=== PATIENT | female | born 1940 | race Caucasian/White ===

== ENCOUNTER 2016-08-11 09:46 | Outpatient (CLI) | payer MEDICARE, OTHER | END 2016-08-11 09:47 | disposition home or self-care (01) | DX: R11.10 Vomiting, unspecified (principal) | CPT/HCPCS: 78265; A9541 ==

== ENCOUNTER 2016-08-12 08:00 | Outpatient (CLI) | payer MEDICARE, OTHER | END 2016-08-12 23:59 | disposition home or self-care (01) | DX: R11.10 Vomiting, unspecified (principal) ==

== ENCOUNTER 2016-08-16 08:00 | Outpatient (CLI) | payer MEDICARE, OTHER | END 2016-08-16 08:01 | disposition home or self-care (01) | DX: R11.10 Vomiting, unspecified (principal) ==

== ENCOUNTER 2016-08-18 14:00 | Outpatient (CLI) | payer MEDICARE, OTHER | END 2016-08-18 14:01 | disposition home or self-care (01) | DX: R11.10 Vomiting, unspecified (principal) ==

== ENCOUNTER 2016-08-19 08:00 | Outpatient (CLI) | payer MEDICARE, OTHER | END 2016-08-19 08:01 | disposition home or self-care (01) | DX: R11.10 Vomiting, unspecified (principal) ==

== ENCOUNTER 2016-08-26 08:00 | Outpatient (CLI) | payer MEDICARE, OTHER | END 2016-08-26 23:59 | DX: R11.10 Vomiting, unspecified (principal) ==

== ENCOUNTER 2017-02-03 07:57 | Outpatient (CLI) | payer MEDICARE, OTHER ==
--- NOTE | 2017-02-03 16:39 | Ultrasound Report ---
RIGHT UPPER QUADRANT ULTRASOUND: 02/03/2017 CLINICAL INDICATION: Epigastric pain, dyspepsia. TECHNIQUE: Real-time scanning was performed with admitting representative static images obtained. FINDINGS: The liver measures 12.1 cm. Hepatic echogenicity is mildly increased. No focal parenchym al abnormality or intrahepatic biliary dilatation is present. The common bile duct measures 6 mm. T he gallbladder is normal. The right kidney measures 9.0 cm and demonstrates no hydronephrosis. No f ree fluid is present. IMPRESSION: MILDLY ECHOGENIC LIVER, SUSPICIOUS FOR FATTY INFILTRATION. NO EVIDENCE OF CHOLELITHIASI S OR BILIARY OBSTRUCTION. JOB #: [id number] EXT JOB #:[id number]
== END 2017-02-03 07:58 | disposition home or self-care (01) ==
LOC: DI 07:57
PROVIDERS: ATTEND Internal Medicine Gastroenterology
DX: R10.13 Epigastric pain (principal)
CPT/HCPCS: 76705

== ENCOUNTER 2017-09-27 08:29 | Outpatient (CLI) | payer MEDICARE, OTHER ==
[2017-09-27 11:09] LABS: EOSINOPHILS # (AUTO) 0.2 10^3/uL (0.0-0.7); EOSINOPHILS % (AUTO) 3.8 %; HGB - HEMOGLOBIN 12.9 g/dL (12.0-16.0); LYMPHOCYTES # (AUTO) 1.2 10^3/uL (1.5-3.5); LYMPHOCYTES % (AUTO) 29.3 %; MEAN CORPUSCULAR HEMOGLOBIN 30.4 pg (27.0-31.0); MEAN CORPUSCULAR HGB CONC 33.6 g/dL (32.0-36.0); MEAN CORPUSCULAR VOLUME 90.4 fL (81.0-99.0); MEAN PLATELET VOLUME 8.4 fL (7.9-10.8); MONOCYTES # (AUTO) 0.6 10^3/uL (0.0-1.0); MONOCYTES % (AUTO) 13.4 %; NEUTROPHILS # (AUTO) 2.2 10^3/uL (1.5-6.6); NEUTROPHILS % (AUTO) 52.5 %; PLT - PLATELET COUNT 230 10^3/uL (130-450); RED BLOOD COUNT 4.23 10^6/uL (4.20-5.40); RED CELL DISTRIBUTION WIDTH 14.3 % (12.0-15.0); WHITE BLOOD COUNT 4.1 x10^3/uL (4.8-10.8)
[2017-09-27 11:34] LABS: ALBUMIN 3.7 g/dL (3.2-5.5); ALBUMIN/GLOBULIN RATIO 1.5 (1.0-2.2); ALKALINE PHOSPHATASE 33 IU/L (42-121); ALT ALANINE AMINOTRANSFERASE 15 IU/L (10-60); AST ASPARTATE AMINOTRANSFERASE 20 IU/L (10-42); BILIRUBIN,TOTAL 1.1 mg/dL (0.2-1.0); BUN - BLOOD UREA NITROGEN 20 mg/dL (6-20); CALCIUM 9.1 mg/dL (8.5-10.3); CARBON DIOXIDE - CO2 26 mmol/L (21-32); CHLORIDE 107 mmol/L (101-111); CHOL/HDL RATIO 1.8 (<4.4); CHOLESTEROL 151 mg/dL; CREATININE 0.8 mg/dL (0.4-1.0); GFR - MDRD 69 (>89); GLUCOSE 93 mg/dL (70-100); HDL CHOLESTEROL 82 mg/dL; SODIUM 139 mmol/L (135-145); TOTAL PROTEIN 6.2 g/dL (6.7-8.2)
[2017-09-27 11:54] LABS: LDL CHOLESTEROL,DIRECT 48 mg/dL; LDLD/HDL RATIO 0.6 (<4.4)
== END 2017-09-27 08:30 | disposition home or self-care (01) ==
LOC: LAB.F 08:29
PROVIDERS: ATTEND Nurse Practitioner Family
DX: C54.1 Malignant neoplasm of endometrium (principal); Z13.220 Encounter for screening for lipoid disorders
CPT/HCPCS: 36415; 80053; 80061; 83721; 85025

== ENCOUNTER 2017-12-14 13:18 | Outpatient (CLI) | payer MEDICARE, OTHER ==
--- NOTE | 2017-12-16 10:51 | DEXA Report ---
DEXA SCAN: 12/14/2017 HISTORY: Postmenopausal. History of osteoporosis. Previous chemotherapy for cancer and hormone replacement therapy. TECHNIQUE: Dual energy x-ray absorptiometry (DXA) was performed on a [employer] system. Regions measured are the AP spine, femoral neck, and, if needed, forearm. COMPARISON: None. In accordance with the International Society for Clinical Densitometry (ISCD) guidelines, data from previous exams may be reanalyzed using current recommendations and techniques. This is done to allow a more accurate basis for comparison with the current study. FINDINGS: The data for the lumbar spine is as follows: REGION BMD (g/cm/cm) T-SCORE Z-SCORE L1 0.845 -2.4 -0.1 L2 0.903 -2.5 -0.2 L3 1.030 -1.4 0.9 L4 1.013 -1.6 0.7 TOTAL 0.958 -1.8 0.5 NOTE: All evaluable vertebrae are used for classification. The data for the hip is as follows: REGION BMD (g/cm/cm) T-SCORE Z-SCORE Neck 0.739 -2.1 0.3 TOTAL 0.790 -1.7 0.5 NOTE: The femoral neck or total proximal femur, whichever is lowest, is used for classification. IMPRESSION: THE WHO CLASSIFICATION BASED ON THE INTERNATIONAL REFERENCE STANDARD IS OSTEOPENIA (REFERENCE LEFT FEMORAL NECK). THE FRACTURE RISK IS INCREASED. RECOMMENDATION: Patients with diagnosis of osteoporosis or osteopenia should have regular bone mineral density assessment. For those eligible for Medicare, routine testing is allowed once every 2 years. Testing frequency can be increased for patients who have rapidly progressing disease or for those who are receiving medical therapy to restore bone mass. COMMENT: World Health Organization (WHO) definitions for osteoporosis and osteopenia: NORMAL BMD: T-score at 1.0 or higher, fracture risk is low. OSTEOPENIA BMD: T-score between 1.0 and -2.5, fracture risk is increased. OSTEOPOROSIS BMD: T-score at 2.5 or lower, fracture risk high. National Osteoporosis Foundation recommends: 1. Obtain adequate dietary calcium (at least 1200 mg per day) and vitamin D (400 -800 international units per day). 2. Participate, as appropriate, in regular weightbearing and muscle- strengthening exercise. 3. Avoid tobacco use and reduce alcohol and caffeine intake. 4. For more detailed information see the website at www.NOF.org. MTDD
== END 2017-12-14 13:19 | disposition home or self-care (01) ==
LOC: DI 13:18
PROVIDERS: ATTEND Internal Medicine
DX: Z13.820 Encounter for screening for osteoporosis (principal); M85.88 Other specified disorders of bone density and structure, other site; Z78.0 Asymptomatic menopausal state
CPT/HCPCS: 77080

== ENCOUNTER 2017-12-14 13:19 | Outpatient (CLI) | payer MEDICARE, OTHER ==
--- NOTE | 2017-12-16 14:55 | Mammography Report ---
SCREENING MAMMOGRAM: 12/14/2017 COMPARISON: 06/28/2011, 05/18/2007 and 04/26/2007. TECHNIQUE: Bilateral digital CC and MLO projections. FINDINGS: There are scattered fibroglandular densities. There is no dominant mass, architectural distortion, skin thickening, suspicious microcalcification, or significant interval change. IMPRESSION: NEGATIVE. BIRADS CATEGORY - 1. RECOMMENDATION: Suggest return to routine screening in 12 months. STANDARD QUALIFYING STATEMENTS: 1. This examination was reviewed with the aid of Computer-Aided Detection (CAD). 2. A negative or benign imaging report should not delay biopsy if clinically suspicious findings are present. Consider surgical consultation if warranted. More than 5% of cancers are not identified by imaging. 3. Dense breasts may obscure an underlying neoplasm. TD: 12/16/2017 14:04
== END 2017-12-14 13:20 | disposition home or self-care (01) ==
LOC: DI 13:19
PROVIDERS: ATTEND Internal Medicine
DX: Z12.31 Encounter for screening mammogram for malignant neoplasm of breast (principal); Z78.0 Asymptomatic menopausal state
CPT/HCPCS: 77067

== ENCOUNTER 2018-07-20 12:45 | Outpatient (CLI) | payer MEDICARE, OTHER | END 2018-07-20 12:46 | disposition home or self-care (01) | LOC: DI 12:45 | PROVIDERS: ATTEND Internal Medicine | DX: Z82.49 Family history of ischemic heart disease and other diseases of the circulatory system (principal); I34.0 Nonrheumatic mitral (valve) insufficiency | CPT/HCPCS: 93306 ==

== ENCOUNTER 2018-09-21 07:07 | Outpatient (CLI) | payer MEDICARE, OTHER ==
[2018-09-21 12:58] LABS: EOSINOPHILS # (AUTO) 0.2 10^3/uL (0.0-0.7); EOSINOPHILS % (AUTO) 3.9 %; HGB - HEMOGLOBIN 12.7 g/dL (12.0-16.0); LYMPHOCYTES # (AUTO) 1.4 10^3/uL (1.5-3.5); MEAN CORPUSCULAR HEMOGLOBIN 29.8 pg (27.0-31.0); MEAN CORPUSCULAR HGB CONC 33.1 g/dL (32.0-36.0); MEAN CORPUSCULAR VOLUME 89.8 fL (81.0-99.0); MEAN PLATELET VOLUME 8.5 fL (7.9-10.8); MONOCYTES # (AUTO) 0.5 10^3/uL (0.0-1.0); MONOCYTES % (AUTO) 12.9 %; NEUTROPHILS % (AUTO) 48.2 %; PLT - PLATELET COUNT 252 10^3/uL (130-450); RED BLOOD COUNT 4.25 10^6/uL (4.20-5.40); RED CELL DISTRIBUTION WIDTH 14.4 % (12.0-15.0); WHITE BLOOD COUNT 4.2 x10^3/uL (4.8-10.8)
[2018-09-21 13:18] LABS: ALBUMIN 3.9 g/dL (3.2-5.5); ALBUMIN/GLOBULIN RATIO 1.5 (1.0-2.2); ALKALINE PHOSPHATASE 36 IU/L (42-121); ALT ALANINE AMINOTRANSFERASE 22 IU/L (10-60); AST ASPARTATE AMINOTRANSFERASE 25 IU/L (10-42); BUN - BLOOD UREA NITROGEN 25 mg/dL (6-20); CALCIUM 8.8 mg/dL (8.5-10.3); CARBON DIOXIDE - CO2 25 mmol/L (21-32); CHLORIDE 103 mmol/L (101-111); CHOL/HDL RATIO 1.5 (<4.4); CHOLESTEROL 155 mg/dL; CREATININE 0.8 mg/dL (0.4-1.0); GFR - MDRD 69 (>89); GLUCOSE 96 mg/dL (70-100); HDL CHOLESTEROL 102 mg/dL; SODIUM 134 mmol/L (135-145); TOTAL PROTEIN 6.5 g/dL (6.7-8.2)
[2018-09-21 13:45] LABS: LDL CHOLESTEROL,DIRECT 52 mg/dL; LDLD/HDL RATIO 0.5 (<4.4)
[2018-09-21 14:13] LABS: HB2 TOTAL 13.6 g/dL; HEMOGLOBIN A1C 0.51 g/dL; HEMOGLOBIN A1C % 5.6 % (4.6-6.2)
== END 2018-09-21 07:08 | disposition home or self-care (01) ==
LOC: LAB.F 07:07
PROVIDERS: ATTEND Registered Nurse
DX: Z00.00 Encounter for general adult medical examination without abnormal findings (principal)
CPT/HCPCS: 36415; 80053; 80061; 83036; 83721; 84443; 85025

== ENCOUNTER 2020-09-10 14:06 | Outpatient (CLI) | payer MEDICARE, OTHER ==
--- NOTE | 2020-09-10 15:03 | DEXA Report ---
PROCEDURE: Dexa Spine and/or Hip INDICATIONS: POST MENOPAUSAL TECHNIQUE: Dual energy x-ray absorptiometry (DXA) was performed on a [employer] System. Regions measur ed are the AP Spine, femoral neck, and if needed forearm. COMPARISON: 12/14/2017 FINDINGS: Lumbar Spine: Bone Mineral Density 0.933 g/cm/cm,T score -2.1, osteopenia Left Femoral Neck: Bone Mineral Density 0.753 g/cm/cm, T score -2.0, osteopenia (T score greater or equal to -1.0: NORMAL) (T score from -1.1 to -2.4: OSTEOPENIA) (T score less than or equal to -2.5 to: OSTEOPOROSIS) Impression: OSTEOPENIA. Patient is at increased risk for fracture Patients with diagnosis of osteoporosis or osteopenia should have regular bone mineral density assess ment. For those eligible for Medicare, routine testing is allowed once every 2 years. Testing frequ ency can be increased for patients who have rapidly progressing disease or for those who are receivin g medical therapy to restore bone mass. Reviewed by: Karhtikeyan Sanford MD on 09/10/2020 3:02 PM PST Approved by: Karthikeyan Sanford MD on 09/10/2020 3:02 PM PST Station ID: [id number]
== END 2020-09-10 14:07 | disposition home or self-care (01) ==
LOC: DI 14:06
PROVIDERS: ATTEND Registered Nurse
DX: M85.89 Other specified disorders of bone density and structure, multiple sites (principal); Z78.0 Asymptomatic menopausal state

== ENCOUNTER 2020-10-24 13:42 | Outpatient (CLI) | payer MEDICARE, OTHER ==
[2020-10-24 21:31] LABS: ALBUMIN 4.1 g/dL (3.2-5.5); CALCIUM 9.6 mg/dL (8.5-10.3); PHOSPHORUS 3.5 mg/dL (2.5-4.6); POTASSIUM 3.6 mmol/L (3.5-5.0)
== END 2020-10-24 13:43 | disposition home or self-care (01) ==
LOC: LAB.S 13:42
PROVIDERS: ATTEND Nurse Practitioner
DX: C34.31 Malignant neoplasm of lower lobe, right bronchus or lung (principal)
CPT/HCPCS: 36415; 80069

== ENCOUNTER 2020-12-11 09:39 | Outpatient (CLI) | payer MEDICARE, OTHER ==
[2020-12-11 15:15] LABS: BASOPHILS # (AUTO) 0.1 10^3/uL (0.0-0.1); EOSINOPHILS # (AUTO) 0.1 10^3/uL (0.0-0.7); EOSINOPHILS % (AUTO) 1.5 %; HCT - HEMATOCRIT 37.3 % (37.0-47.0); LYMPHOCYTES # (AUTO) 1.4 10^3/uL (1.5-3.5); LYMPHOCYTES % (AUTO) 20.9 %; MEAN CORPUSCULAR HEMOGLOBIN 29.4 pg (27.0-31.0); MEAN CORPUSCULAR HGB CONC 32.2 g/dL (32.0-36.0); MEAN CORPUSCULAR VOLUME 91.4 fL (81.0-99.0); MEAN PLATELET VOLUME 10.4 fL (7.9-10.8); MONOCYTES # (AUTO) 0.8 10^3/uL (0.0-1.0); MONOCYTES % (AUTO) 11.9 %; NEUTROPHILS # (AUTO) 4.4 10^3/uL (1.5-6.6); NEUTROPHILS % (AUTO) 64.4 %; PLT - PLATELET COUNT 293 10^3/uL (130-450); RED BLOOD COUNT 4.08 10^6/uL (4.20-5.40); RED CELL DISTRIBUTION WIDTH 14.6 % (12.0-15.0); WHITE BLOOD COUNT 6.8 x10^3/uL (4.8-10.8)
[2020-12-11 15:21] LABS: ALBUMIN 3.8 g/dL (3.2-5.5); ALBUMIN/GLOBULIN RATIO 1.2 (1.0-2.2); BILIRUBIN,TOTAL 0.8 mg/dL (0.2-1.0); CALCIUM 9.5 mg/dL (8.5-10.3); CREATININE 0.9 mg/dL (0.4-1.0); POTASSIUM 4.1 mmol/L (3.5-5.0); TOTAL PROTEIN 7.1 g/dL (6.7-8.2)
== END 2020-12-11 09:40 | disposition home or self-care (01) ==
LOC: LAB.S 09:39
PROVIDERS: ATTEND Internal Medicine
DX: C54.1 Malignant neoplasm of endometrium (principal)
CPT/HCPCS: 36415; 80053; 85025

== ENCOUNTER 2020-12-19 08:14 | Outpatient (CLI) | payer MEDICARE, OTHER ==
[2020-12-19 14:46] LABS: BASOPHILS % (AUTO) 1.3 %; EOSINOPHILS # (AUTO) 0.2 10^3/uL (0.0-0.7); HCT - HEMATOCRIT 38.8 % (37.0-47.0); HGB - HEMOGLOBIN 12.2 g/dL (12.0-16.0); LYMPHOCYTES # (AUTO) 0.9 10^3/uL (1.5-3.5); LYMPHOCYTES % (AUTO) 27.8 %; MEAN CORPUSCULAR HGB CONC 31.4 g/dL (32.0-36.0); MEAN CORPUSCULAR VOLUME 92.4 fL (81.0-99.0); MEAN PLATELET VOLUME 10.4 fL (7.9-10.8); MONOCYTES # (AUTO) 0.3 10^3/uL (0.0-1.0); MONOCYTES % (AUTO) 9.5 %; NEUTROPHILS # (AUTO) 1.8 10^3/uL (1.5-6.6); NEUTROPHILS % (AUTO) 56.1 %; PLT - PLATELET COUNT 283 10^3/uL (130-450); RED CELL DISTRIBUTION WIDTH 14.4 % (12.0-15.0); WHITE BLOOD COUNT 3.2 x10^3/uL (4.8-10.8)
== END 2020-12-19 08:15 | disposition home or self-care (01) ==
LOC: LAB.S 08:14
PROVIDERS: ATTEND Internal Medicine
DX: C54.1 Malignant neoplasm of endometrium (principal)
CPT/HCPCS: 36415; 85025

== ENCOUNTER 2020-12-26 09:18 | Outpatient (CLI) | payer MEDICARE, OTHER ==
[2020-12-26 14:49] LABS: BASOPHILS % (AUTO) 0.8 %; EOSINOPHILS % (AUTO) 3.4 %; HCT - HEMATOCRIT 36.3 % (37.0-47.0); HGB - HEMOGLOBIN 11.4 g/dL (12.0-16.0); MEAN CORPUSCULAR HEMOGLOBIN 28.7 pg (27.0-31.0); MEAN CORPUSCULAR HGB CONC 31.4 g/dL (32.0-36.0); MEAN CORPUSCULAR VOLUME 91.4 fL (81.0-99.0); MEAN PLATELET VOLUME 10.6 fL (7.9-10.8); MONOCYTES % (AUTO) 6.4 %; PLT - PLATELET COUNT 226 10^3/uL (130-450); RED BLOOD COUNT 3.97 10^6/uL (4.20-5.40); RED CELL DISTRIBUTION WIDTH 13.8 % (12.0-15.0); WHITE BLOOD COUNT 2.6 x10^3/uL (4.8-10.8)
[2020-12-26 14:59] LABS: ABNORMAL LYMPHS % (MANUAL) 0 %; BAND NEUTROPHILS % (MANUAL) 0 %
[2020-12-26 15:22] LABS: BASOPHILS % (MANUAL) 1 %; EOSINOPHILS # (MANUAL) 0.1 10^3/uL (0-0.7); LYMPHOCYTES % (MANUAL) 37 %; MONOCYTES # (MANUAL) 0.1 10^3/uL (0.0-1.0); NEUTROPHILS # (MANUAL) 1.4 10^3/uL (1.5-6.6)
[2020-12-26 15:23] LABS: DIFFERENTIAL COMMENT MANUAL DIFFERENTIAL; PLATELET ESTIMATE, MANUAL NORMAL (130-450,000) (NORMAL); PLATELET MORPHOLOGY NORMAL APPEARANCE (NORMAL); RBC MORPHOLOGY (MULTIPLE) NORMAL APPEARANCE (NORMAL); WBC MORPHOLOGY (MULTIPLE) NORMAL APPEARANCE (NORMAL)
== END 2020-12-26 09:19 | disposition home or self-care (01) ==
LOC: LAB.S 09:18
PROVIDERS: ATTEND Internal Medicine
DX: C54.1 Malignant neoplasm of endometrium (principal)
CPT/HCPCS: 36415; 85025

== ENCOUNTER 2021-01-02 08:47 | Outpatient (CLI) | payer MEDICARE, OTHER ==
[2021-01-02 14:57] LABS: BASOPHILS % (AUTO) 0.8 %; EOSINOPHILS % (AUTO) 3.8 %; HGB - HEMOGLOBIN 11.1 g/dL (12.0-16.0); LYMPHOCYTES % (AUTO) 40.8 %; MEAN CORPUSCULAR HEMOGLOBIN 29.7 pg (27.0-31.0); MEAN CORPUSCULAR HGB CONC 32.6 g/dL (32.0-36.0); MEAN CORPUSCULAR VOLUME 90.9 fL (81.0-99.0); MEAN PLATELET VOLUME 10.4 fL (7.9-10.8); MONOCYTES % (AUTO) 4.2 %; NEUTROPHILS % (AUTO) 50.4 %; PLT - PLATELET COUNT 114 10^3/uL (130-450); RED BLOOD COUNT 3.74 10^6/uL (4.20-5.40); RED CELL DISTRIBUTION WIDTH 14.3 % (12.0-15.0); WHITE BLOOD COUNT 2.6 x10^3/uL (4.8-10.8)
[2021-01-02 15:04] LABS: ABNORMAL LYMPHS % (MANUAL) 0 %
[2021-01-02 15:08] LABS: ALBUMIN 3.8 g/dL (3.2-5.5); ALBUMIN/GLOBULIN RATIO 1.5 (1.0-2.2); BILIRUBIN,TOTAL 1.2 mg/dL (0.2-1.0); CREATININE 0.8 mg/dL (0.4-1.0); TOTAL PROTEIN 6.4 g/dL (6.7-8.2)
[2021-01-02 16:19] LABS: BAND NEUTROPHILS % (MANUAL) 1 %; BASOPHILS # (MANUAL) 0.1 10^3/uL (0-0.1); BASOPHILS % (MANUAL) 3 %; EOSINOPHILS # (MANUAL) 0.2 10^3/uL (0-0.7); LYMPHOCYTES # (MANUAL) 1.2 10^3/uL (1.5-3.5); LYMPHOCYTES % (MANUAL) 47 %; MONOCYTES # (MANUAL) 0.1 10^3/uL (0.0-1.0); NEUTROPHILS # (MANUAL) 1.1 10^3/uL (1.5-6.6)
[2021-01-02 16:20] LABS: DIFFERENTIAL COMMENT MANUAL DIFFERENTIAL; PLATELET ESTIMATE, MANUAL DECREASED (<130,000) (NORMAL); PLATELET MORPHOLOGY NORMAL APPEARANCE (NORMAL); RBC MORPHOLOGY (MULTIPLE) NORMAL APPEARANCE (NORMAL); WBC MORPHOLOGY (MULTIPLE) NORMAL APPEARANCE (NORMAL)
== END 2021-01-02 08:48 | disposition home or self-care (01) ==
LOC: LAB.S 08:47
PROVIDERS: ATTEND Internal Medicine
DX: C54.1 Malignant neoplasm of endometrium (principal)
CPT/HCPCS: 36415; 80053; 85025

== ENCOUNTER 2021-01-06 09:00 | Inpatient (IN) | payer MEDICARE, OTHER ==
[2021-01-06] MEDS ORDERED: ACETAMINOPHEN 325 MG TABLET PO STA (09:29)
[2021-01-06 10:02] LABS: BASOPHILS % (AUTO) 0.8 %; EOSINOPHILS % (AUTO) 1.6 %; HCT - HEMATOCRIT 32.5 % (37.0-47.0); HGB - HEMOGLOBIN 10.6 g/dL (12.0-16.0); LYMPHOCYTES % (AUTO) 5.1 %; MEAN CORPUSCULAR HEMOGLOBIN 29.3 pg (27.0-31.0); MEAN CORPUSCULAR HGB CONC 32.6 g/dL (32.0-36.0); MEAN CORPUSCULAR VOLUME 89.8 fL (81.0-99.0); MONOCYTES % (AUTO) 1.6 %; NEUTROPHILS % (AUTO) 90.1 %; PLT - PLATELET COUNT 80 10^3/uL (130-450); RED BLOOD COUNT 3.62 10^6/uL (4.20-5.40); RED CELL DISTRIBUTION WIDTH 14.1 % (12.0-15.0); WHITE BLOOD COUNT 2.6 x10^3/uL (4.8-10.8)
[2021-01-06 10:05] LABS: SLIDE REVIEW? Indicated
[2021-01-06 10:07] LABS: ABNORMAL LYMPHS % (MANUAL) 0 %
[2021-01-06 10:14] LABS: ALBUMIN 4.1 g/dL (3.2-5.5); ALBUMIN/GLOBULIN RATIO 1.5 (1.0-2.2); BILIRUBIN,TOTAL 0.9 mg/dL (0.2-1.0); CALCIUM 8.4 mg/dL (8.5-10.3); CREATININE 0.9 mg/dL (0.4-1.0); POTASSIUM 3.6 mmol/L (3.5-5.0); TOTAL PROTEIN 6.8 g/dL (6.7-8.2)
[2021-01-06 10:27] LABS: BAND NEUTROPHILS % (MANUAL) 8 %; LYMPHOCYTES # (MANUAL) 0.3 10^3/uL (1.5-3.5); LYMPHOCYTES % (MANUAL) 11 %; NEUTROPHILS # (MANUAL) 2.3 10^3/uL (1.5-6.6); REACTIVE LYMPHS % (MANUAL) 1 %
[2021-01-06 10:29] LABS: DIFFERENTIAL COMMENT MANUAL DIFFERENTIAL
--- NOTE | 2021-01-06 10:35 | ED Physician Documentation ---
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 Patient states she was feeling normal prior to chemotherapy and then went home, feeling tired but otherwise normal. They have no air conditioning in their house and she was extremely warm and found it hard to sleep. At 3 AM she woke up with feeling of chills and body aches. The room felt cool at that time. temp was 100.3, then after retaking it 101.5. She took Tylenol and tried to go back to sleep, sleeping fitfully. That morning she called her oncologist' office mariusz Polanco, who recommended coming to the emergency room for possible antibiotics/admission. Patient has had a chronic cough since her diagnosis that is nonworsening, nonproductive. Denies leg swelling, nausea, vomiting. She did have one loose stool this morning that was nonbloody. Also had a mild sore throat last night that has resolved. Denies ear pain, nasal congestion, chest pain, shortness of air, abdominal pain, urinary symptoms. She has a rash to her left forearm that started 4 days ago her oncologist has been giving her ointment for. It was also on the back but resolved. Review of Systems Ten Systems: 10 systems reviewed and negative Constitutional: reports: Fever, Chills, Myalgias, Fatigue Respiratory: reports: Cough Skin: reports: Rash PD PAST MEDICAL HISTORY - Past Medical History Past Medical History: Yes Cardiovascular: None Respiratory: None Neuro: None Endocrine/Autoimmune: None GI: None : None HEENT: None Psych: None Musculoskeletal: None Derm: None - Past Surgical History Past Surgical History: No - Allergies Allergies/Adverse Reactions: Allergies Allergy/AdvReac Type Severity Reaction Status Date / Time No Known Drug Allergies Allergy Verified 01/06/21 09:14 - Social History Does the pt smoke?: No Smoking Status: Never smoker Does the pt drink ETOH?: No Does the pt have substance abuse?: No - Immunizations Immunizations are current?: Yes - POLST Patient has POLST: No PD ED PE NORMAL - Vitals Vital signs reviewed: Yes - General General: Alert and oriented X 3, No acute distress, Well developed/nourished - HEENT HEENT: Atraumatic, PERRL, EOMI, Ears normal, Moist mucous membranes, Pharynx benign - Neck Neck: Supple, no meningeal sign - Cardiac Cardiac: RRR - Respiratory Respiratory: No respiratory distress, Clear bilaterally - Abdomen Abdomen: Non tender, Non distended - Back Back: No CVA TTP - Derm Derm: Normal color, Warm and dry - Extremities Extremities: No deformity, No edema - Neuro Neuro: Alert and oriented X 3 - Psych Psych: Normal mood, Normal affect Results - Vitals Vitals: Vital Signs - 24 hr 01/06/21 01/06/21 09:07 10:22 Temperature 38.2 C H 37.7 C Heart Rate 88 86 Respiratory 18 18 Rate Blood Pressure 132/76 H 95/78 O2 Saturation 98 100 Oxygen O2 Source Room air - Labs Labs: Laboratory Tests 01/06/21 01/06/21 01/06/21 09:53 09:53 09:53 WBC 2.6 L RBC 3.62 L Hgb 10.6 L Hct 32.5 L MCV 89.8 MCH 29.3 MCHC 32.6 RDW 14.1 Plt Count 80 L MPV 10.0 Neut # (Auto) Not Reportable Lymph # (Auto) Not Reportable [place] # (Auto) Not Reportable Eos # (Auto) Not Reportable Baso # (Auto) Not Reportable Absolute Nucleated RBC Not Reportable Total Counted 100 Band Neuts % (Manual) 8 Reactive Lymphs % (Man) 1 Abnorm Lymph % (Manual) 0 Nucleated RBC % Not Reportable Neutrophils # (Manual) 2.3 Lymphocytes # (Manual) 0.3 L Monocytes # (Manual) 0.0 Eosinophils # (Manual) 0.0 Basophils # (Manual) 0.0 Differential Comment MANUAL DIFFERENTIAL Manual Slide Review Indicated Sodium 137 Potassium 3.6 Chloride 101 Carbon Dioxide 24 Anion Gap 12.0 BUN 15 Creatinine 0.9 Estimated GFR (MDRD) 60 L Glucose 106 H Lactic Acid 1.9 Calcium 8.4 L Total Bilirubin 0.9 AST 24 ALT 24 Alkaline Phosphatase 40 L Total Protein 6.8 Albumin 4.1 Globulin 2.7 Albumin/Globulin Ratio 1.5 Lipase 32 PD MEDICAL DECISION MAKING - ED course ED course: D/W Dr. Wren who recommends admission on broad spectrum antibiotics for neutropenic fever. also requesting we give neupogen while inpatient. Departure - Departure Disposition: 66 [facility] DC/Xfer Clinical Impression: Neutropenic fever Condition: Good
[2021-01-06] MEDS ORDERED: SODIUM CHLORIDE 0.9% IV STA (10:40)
[2021-01-06] MEDS ORDERED: CEFEPIME 1 GM in SODIUM CHLORIDE 0.9% MINIBAG 100 ML IV STA (10:40)
[2021-01-06] MEDS ORDERED: SODIUM CHLORIDE FLUSH 0.9% 10 ML SYRINGE IVP PRN (10:55)
--- NOTE | 2021-01-06 11:04 | HISTORY & PHYSICAL EXAMINATION ---
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 At home she had a temperature as high as 101.3 Fahrenheit. Upon presentation to the ED repeat temperature check was 38.2 C. She had chemotherapy infusion yesterday. She is on Taxol and carboplatin. She is being admitted at her oncologist's request for antibiotics and Neupogen. At bedside she is resting comfortably. She denies any complaints. She was shiver ing yesterday when she was febrile as well. She denies chest pain, dyspnea, abdominal pain, nausea, vomiting, fever or chills. Her WBC was 2.6. History - Past Medical History Cardiovascular: reports: None Respiratory: reports: None Neuro: reports: None Endocrine/Autoimmune: reports: None GI: reports: None APPLIANCE COUNSELOR: reports: Other (endometrial cancer with mets to lungs) : reports: None HEENT: reports: None Psych: reports: None Musculoskeletal: reports: None Derm: reports: None MRSA Hx?: No - Past Surgical History /APPLIANCE COUNSELOR: reports: Hysterectomy HEENT: reports: Tonsil/Adenoidectomy - Family & Social History Family History Comment/Other: mother had emphysema and heart disease. Living arrangement: At home Living Situation: With spouse/s.o. Social History Notes: She lives at home with her . She does not consume alcohol, tobacco products or recreational substances. - POLST Patient has POLST: No POLST Status: Full Code Meds/Allgy - Home Medications Home Medications: Ambulatory Orders Medication Instructions Recorded Confirmed Beclomethasone Dipropionate [Qvar 2 puffs INH DAILY 01/06/21 Redihaler (80 mcg)] Benzonatate [Tessalon] 100 mg PO TID PRN 01/06/21 Ondansetron HCl [Zofran] 8 mg PO Q8H PRN 01/06/21 Prochlorperazine [Compazine] 10 mg PO Q6H PRN 01/06/21 Triamcinolone Acetonide 1 applic TOP BID 01/06/21 01/06/21 - Allergies Allergies/Adverse Reactions: Allergies Allergy/AdvReac Type Severity Reaction Status Date / Time No Known Drug Allergies Allergy Verified 01/06/21 09:14 Review of Systems - Constitutional Constitutional: reports: Fever, Chills. denies: Fatigue, Weakness, Poor appetite - Eyes Eyes: denies: Pain, Irritation, Vision loss - Ears, Nose & Throat Ears, Nose & Throat: denies: Sore throat - Cardiovascular Cariovascular: denies: Chest pain, Edema, Lightheadedness - Respiratory Respiratory: denies: Cough, Wheezing, SOB at rest - Gastrointestinal Gastrointestinal: denies: Abdominal pain, Abdominal distention, Constipation, Diarrhea, Nausea, Vomiting, Reflux/heartburn - Genitourinary Genitourinary: denies: Dysuria, Frequency, Urgency, Hematuria, Incontinence - Musculoskeletal Musculoskeletal: denies: Muscle pain, Back pain, Muscle aches - Integumentary Integumentary: denies: Rash, Pruritis, Lesions - Neurological Neurological: denies: General weakness, Focal weakness, Headache, Dizziness - Psychiatric Psychiatric: denies: Depression, Anxiety - Endocrine Endocrine: denies: Polyuria, Polydypsia - Hematologic/Lymphatic Hematologic/Lymphatic: denies: Anemia, Bruising Prior Level of Functionality: The patient is independent of activities of daily living Exam - Vital Signs Vital Signs: Vital Signs x48h Temp Pulse Resp BP Pulse Ox 01/06/21 10:22 37.7 C 86 18 95/78 100 01/06/21 09:07 38.2 C H 88 18 132/76 H 98 - Physical Exam General Appearance: positive: No acute distress, Alert Eyes Bilateral: positive: PERRL, EOMI ENT: positive: No signs of dehydration Neck: positive: No JVD, Trachea midline Respiratory: positive: Chest non-tender, No respiratory distress, Breath sounds nml. negative: Wheezes, Rales, Rhonchi Cardiovascular: positive: Regular rate & rhythm, No murmur Abdomen: positive: Non-tender, No organomegaly, Nml bowel sounds, No distention. negative: Guarding, Rebound Back: positive: Nml inspection Skin: positive: Color nml, No rash, Warm, Dry Extremities: positive: Non-tender, Full ROM, Nml appearance, No pedal edema Neurologic/Psychiatric: positive: Oriented x3, Mood/affect nml Conclusion/Plan - Problem List (1) Neutropenic fever Conclusion/Plan: Blood cultures drawn. Patient started on cefepime 2 g every 12 hours IV. Tylenol as needed for fever. If no growth in blood cultures for 48 hours, will consider discharge. (2) Endometrial adenocarcinoma Conclusion/Plan: On carboplatin and Taxol. Patient is to follow-up with her oncologist (Dr Wren) upon discharge. (3) Neutropenia Conclusion/Plan: Possibly related to patient's chemotherapy. She was 2.6 Will continue to monitor - Lab Results Fish Bones: 01/07/21 04:25 01/07/21 04:25 Core Measures - Anticipated LOS I expect patient to be DC'd or transferred within 96 hours.: Yes - DVT/VTE - Prophylaxis VTE/DVT Device ordered at admit?: Yes VTE/DVT Prophylaxis med ordered at admit?: Yes
[2021-01-06 11:06] LABS: B. PARAPERTUSSIS- RESP PCR PAN NOT DETECTED; B. PERTUSSIS- RESP PCR PANEL NOT DETECTED; C. PNEUMONIAE- RESP PCR PANEL NOT DETECTED; CORONAVIRUS 229E-RESP PCR NOT DETECTED; CORONAVIRUS HKU1-RESP PCR NOT DETECTED; CORONAVIRUS NL63-RESP PCR NOT DETECTED; CORONAVIRUS OC43-RESP PCR NOT DETECTED; HUMAN METAPNEUMOVIRUS NOT DETECTED; INFLUENZA A- RESP PCR PANEL NOT DETECTED; INFLUENZA B - RESP PCR PANEL NOT DETECTED; M. PNEUMONIAE- RESP PCR PANEL NOT DETECTED; PARAINFLUENZA VIRUS 1 NOT DETECTED; PARAINFLUENZA VIRUS 2 NOT DETECTED; PARAINFLUENZA VIRUS 3 NOT DETECTED; PARAINFLUENZA VIRUS 4 NOT DETECTED; RHINOVIRUS/ENTEROVIRUS NOT DETECTED; RSV- RESP PCR PANEL NOT DETECTED; SARS-CoV-2 -RESP PCR PANEL NOT DETECTED
--- NOTE | 2021-01-06 11:11 | XRAY Report ---
PROCEDURE: Chest 2 View X-Ray INDICATIONS: neutropenic fever TECHNIQUE: 2 view(s) of the chest. COMPARISON: CXR 07/23/2013. FINDINGS: Surgical changes and devices: Left-sided port with the catheter tip projecting at the lower third of the SVC. Lungs and pleura: No pleural effusions or pneumothorax. Lungs appear clear. Mediastinum: Right retrocardiac opacity which is new compared to the prior radiographs from 2013. Lef t heart border is unchanged. Heart size is normal. Bones and chest wall: No suspicious bony abnormalities. Soft tissues appear unremarkable. IMPRESSION: Large right retrocardiac opacity which is new compared to prior CXR. This could represent a mass, lar ge hiatal hernia, or pericardial cyst. Less likely pneumonia given its rounded circumscribed appearan ce. This can be further characterized with CT of the chest with IV contrast if clinically indicated. Results were communicated to Dr. Kary Perez at 01/06/2021 11:09 AM PDT. Reviewed by: Sanya Lebron MD on 01/06/2021 11:10 AM PDT Approved by: Sanya Lebron MD on 01/06/2021 11:10 AM PDT Station ID: [id number]
[2021-01-06 11:18] LABS: BILIRUBIN,URINE NEGATIVE (NEGATIVE); GLUCOSE, URINE (UA) NEGATIVE (NEGATIVE); KETONES,URINE (UA) NEGATIVE (NEGATIVE); LEUKOCYTE ESTERASE, URINE NEGATIVE (NEGATIVE); NITRITE,URINE NEGATIVE (NEGATIVE); OCCULT BLOOD,URINE NEGATIVE (NEGATIVE); PROTEIN,URINE TRACE mg/dL (NEGATIVE); UROBILINOGEN,URINE 0.2 (NORMAL) E.U./dL (NORMAL)
[2021-01-06 11:19] LABS: CLARITY,URINE CLEAR (CLEAR)
[2021-01-06 11:35] LABS: BACTERIA,URINE Few /HPF (None Seen); RBC,URINE 0-5 /HPF (0-5); SQUAMOUS EPITHELIAL CELL,UR FEW Squamous (<= Few); WBC,URINE 0-3 /HPF (0-5)
[2021-01-06] MEDS: SODIUM CHLORIDE 0.9% 1,000 ML IV SCH ×2 (12:40→17:25)
[2021-01-06] MEDS: ENOXAPARIN 40 MG/0.4 ML SYRINGE SUBQ SCH (14:20)
[2021-01-06] MEDS: ACETAMINOPHEN 325 MG TABLET PO PRN (17:19)
[2021-01-06] MEDS: SODIUM CHLORIDE FLUSH 0.9% 10 ML SYRINGE IVP SCH (17:20)
[2021-01-06] MEDS ORDERED: SODIUM CHLORIDE 0.9% 500 ML IV ONE (19:31)
[2021-01-06] MEDS: TRIAMCINOLONE 0.5% CREAM 15 GM TUBE TOP SCH (20:56)
[2021-01-06] MEDS: VANCOMYCIN INJ 1.75 GM in SODIUM CHLORIDE 0.9% 500 ML IV SCH (21:43)
[2021-01-06] MEDS: CEFEPIME 2 GM in SODIUM CHLORIDE 0.9% MINIBAG 100 ML IV SCH (23:50)
[2021-01-07] MEDS: SODIUM CHLORIDE FLUSH 0.9% 10 ML SYRINGE IVP SCH ×3 (00:39→17:16)
[2021-01-07] MEDS: SODIUM CHLORIDE 0.9% 1,000 ML IV SCH ×4 (04:17→18:30)
[2021-01-07 05:25] LABS: BASOPHILS % (AUTO) 0.6 %; EOSINOPHILS % (AUTO) 3.5 %; HCT - HEMATOCRIT 26.9 % (37.0-47.0); HGB - HEMOGLOBIN 8.4 g/dL (12.0-16.0); LYMPHOCYTES % (AUTO) 13.9 %; MEAN CORPUSCULAR HEMOGLOBIN 28.2 pg (27.0-31.0); MEAN CORPUSCULAR HGB CONC 31.2 g/dL (32.0-36.0); MEAN CORPUSCULAR VOLUME 90.3 fL (81.0-99.0); MEAN PLATELET VOLUME 10.8 fL (7.9-10.8); MONOCYTES % (AUTO) 3.5 %; NEUTROPHILS % (AUTO) 78.5 %; PLT - PLATELET COUNT 67 10^3/uL (130-450); RED BLOOD COUNT 2.98 10^6/uL (4.20-5.40); RED CELL DISTRIBUTION WIDTH 14.6 % (12.0-15.0)
[2021-01-07 05:27] LABS: CALCIUM 7.2 mg/dL (8.5-10.3); CREATININE 0.9 mg/dL (0.4-1.0); POTASSIUM 3.2 mmol/L (3.5-5.0)
[2021-01-07 05:32] LABS: WHITE BLOOD COUNT 1.7 x10^3/uL (4.8-10.8)
[2021-01-07 05:33] LABS: ABNORMAL LYMPHS % (MANUAL) 0 %
[2021-01-07 06:02] LABS: BAND NEUTROPHILS % (MANUAL) 5 %; DIFFERENTIAL COMMENT MANUAL DIFFERENTIAL; EOSINOPHILS # (MANUAL) 0.1 10^3/uL (0-0.7); LYMPHOCYTES # (MANUAL) 0.2 10^3/uL (1.5-3.5); LYMPHOCYTES % (MANUAL) 10 %; NEUTROPHILS # (MANUAL) 1.4 10^3/uL (1.5-6.6); PLATELET ESTIMATE, MANUAL DECREASED (<130,000) (NORMAL); RBC MORPHOLOGY (MULTIPLE) NORMAL APPEARANCE (NORMAL)
[2021-01-07] MEDS ORDERED: POTASSIUM CHLORIDE 20 MEQ TABLET PO ONE (07:36)
--- NOTE | 2021-01-07 07:40 | PROVIDER PROGRESS NOTE ---
Assessment/Plan - Problem List (1) Neutropenic fever Assessment/Plan: No growth on blood cultures to date. Patient last had a fever with a temperature of 38.2 degree celsius at 7:27pm last night Vancomycin was added to cefepime. The patient's WBC today was 1.7 from 2.6 On normal saline at 150 mL/h. Tylenol as needed for fever. (2) Endometrial adenocarcinoma Assessment/Plan: On carboplatin and Taxol. Patient is to follow-up with her oncologist (Dr Mesfin Wren) upon discharge. (3) Neutropenia Assessment/Plan: Possibly related to patient's chemotherapy. WBC today was 1.7. Down from 2.[address] Mesfin Albarado (oncologist) today for further recommendations while continuing antibiotcs. Will continue to monitor - Current Meds Current Meds: Current Medications Generic Name Dose Route Start Last Admin Trade Name Freq PRN Reason Stop Dose Admin Acetaminophen 650 mg 01/06/21 10:55 01/06/21 17:19 Acetaminophen 325 Mg Tablet PO 650 mg Q6HR PRN Administration Pain 1 to 4 Enoxaparin Sodium 40 mg 01/06/21 11:00 01/06/21 14:20 Enoxaparin 40 Mg/0.4 Ml Syringe SUBQ 40 mg DAILY CARLENE Administration Cefepime HCl 2 gm/ Sodium 100 mls @ 200 mls/hr 01/06/21 23:30 01/07/21 00:39 Chloride IV Infused Q12H CARLENE Infusion Sodium Chloride 1,000 mls @ 150 mls/hr 01/06/21 19:32 01/07/21 04:17 Normal Saline 0.9% IV 150 mls/hr .Q6H40M CARLENE Administration Vancomycin HCl 1.75 gm/ Sodium 500 mls @ 250 mls/hr 01/06/21 21:00 01/06/21 23:50 Chloride IV Infused Q24H CARLENE Infusion Sodium Chloride 10 ml 01/06/21 17:00 01/07/21 00:39 Sodium Chloride Flush 0.9% 10 Ml Syringe IVP Not Given 0100,0900,1700 CARLENE Triamcinolone Acetonide 1 applic 01/06/21 21:00 01/06/21 20:56 Triamcinolone 0.5% Cream 15 Gm Tube TOP 1 applic BID CARLENE Administration - Lab Result Fish Bone Diagrams: 01/07/21 04:25 01/07/21 04:25 - Additional Planning My Orders: My Active Orders 01/06/21 10:55 Activity Orders [RC] Q2HR IO [RC] IOSHIFT Initiate Bowel Care Protocol [RC] .protocol Initiate Line Care Protocol [RC] QSHIFT Initiate Personal Care Protoco [RC] .protocol Vital Signs [RC] 0800,1600,0000 Acetaminophen [Tylenol] 650 mg PO Q6HR PRN Sodium Chloride Flush 0.9% [Normal Saline Flush 0.9%] 10 ml IVP PRN PRN Code Status [OTHERS] Routine Condition of Patient [OTHERS] Routine DVT Prophylaxis [OTHERS] Routine 01/06/21 11:00 SCDs [RC] QSHIFT Enoxaparin [Lovenox] 40 mg SUBQ DAILY 01/06/21 11:02 Neutropenic Management [RC] QSHIFT 01/06/21 Lunch Neutropenic (Low Microbial) Diet [DIET] Regular Diet [DIET] 01/06/21 17:00 Sodium Chloride Flush 0.9% [Normal Saline Flush 0.9%] 10 ml IVP 0100,0900,1700 01/06/21 19:32 Sodium Chloride 0.9% [Normal Saline 0.9%] 1,000 ml IV 150 mls/hr 01/06/21 19:33 Vancomycin: Pharmacy To Dose [Vancomycin-Pharmacy To Dose] 1 each ONCE PRN 01/06/21 21:00 Triamcinolone 0.5% Cream [Kenalog 0.5% Cream] 1 applic TOP BID Vancomycin Inj [Vancomycin] 1.75 gm Sodium Chloride 0.9% [Normal Saline 0.9%] 500 ml IV Q24H 01/06/21 23:30 Cefepime 2 gm Sodium Chloride 0.9% Minibag [Normal Saline 0.9% Minibag] 100 ml IV Q12H 01/07/21 07:35 MAGNESIUM [CHEM] Stat 01/07/21 07:36 Potassium Chloride [K-Dur] 40 meq PO ONCE ONE 01/08/21 05:00 BMP - BASIC METABOLIC PANEL [CHEM] DAILYLAB CBC - COMP BLD CT W/AUTO DIFF [HEME] DAILYLAB 01/09/21 05:00 BMP - BASIC METABOLIC PANEL [CHEM] DAILYLAB CBC - COMP BLD CT W/AUTO DIFF [HEME] DAILYLAB 01/10/21 05:00 BMP - BASIC METABOLIC PANEL [CHEM] DAILYLAB CBC - COMP BLD CT W/AUTO DIFF [HEME] DAILYLAB 01/11/21 05:00 BMP - BASIC METABOLIC PANEL [CHEM] DAILYLAB CBC - COMP BLD CT W/AUTO DIFF [HEME] DAILYLAB Subjective - Subjective Patient Reports: Other (Patient resting comfortably in bed. visiting at bedside. She denies any new complaints. She last had a fever around 7:27 PM last night.) Objective Vital Signs: Vital Signs - 24 hr 01/06/21 01/06/21 01/06/21 09:07 10:22 12:00 Temperature 38.2 C H 37.7 C 37.1 C Heart Rate 88 86 77 Heart Rate [ Brachial] Heart Rate [ Radial] Respiratory 18 18 18 Rate Blood Pressure 132/76 H 95/78 98/63 Blood Pressure [Left Brachial artery] Blood Pressure [Right Brachial artery] O2 Saturation 98 100 100 01/06/21 01/06/21 01/06/21 12:59 15:45 17:13 Temperature 37.0 C 37.3 C 38.3 C H Heart Rate Heart Rate [ 76 Brachial] Heart Rate [ 78 Radial] Respiratory 17 17 Rate Blood Pressure Blood Pressure 99/54 L 111/53 L [Left Brachial artery] Blood Pressure [Right Brachial artery] O2 Saturation 100 98 01/06/21 01/06/21 01/07/21 19:27 21:02 00:00 Temperature 38.2 C H 37.2 C 37.4 C Heart Rate Heart Rate [ 78 76 Brachial] Heart Rate [ Radial] Respiratory 17 18 Rate Blood Pressure Blood Pressure 108/49 L [Left Brachial artery] Blood Pressure 92/40 L 99/41 L [Right Brachial artery] O2 Saturation 94 97 01/07/21 01/07/21 04:21 07:20 Temperature 37.8 C 37.2 C Heart Rate Heart Rate [ 88 Brachial] Heart Rate [ Radial] Respiratory 18 Rate Blood Pressure Blood Pressure 109/49 L [Left Brachial artery] Blood Pressure [Right Brachial artery] O2 Saturation 95 Oxygen O2 Source Room air I&O (Last 24 Hrs): Intake and Output Totals x24h 01/05/21 01/06/21 01/07/21 23:59 23:59 23:59 Intake Total 1972.5 747.5 Output Total 350 Balance 1622.5 747.5 General: Alert, Oriented x3, No acute distress HEENT: PERRLA, EOMI Neck: Supple, No JVD Neuro: Alert, Non Focal, Oriented Times 3 Cardiovascular: Regular rate, No murmurs Respiratory: Chest non-tender, No respiratory distress, Breath sounds nml Abdomen: Normal bowel sounds, Soft, No tenderness Extremities: No clubbing, No cyanosis, No edema, No tenderness/swelling Skin: No rashes, No breakdown - Results Results: Laboratory Results WBC 1.7 x10^3/uL (4.8-10.8) L* 01/07/21 04:25 RBC 2.98 10^6/uL (4.20-5.40) L 01/07/21 04:25 Hgb 8.4 g/dL (12.0-16.0) L 01/07/21 04:25 Hct 26.9 % (37.0-47.0) L 01/07/21 04:25 MCV 90.3 fL (81.0-99.0) 01/07/21 04:25 MCH 28.2 pg (27.0-31.0) 01/07/21 04:25 MCHC 31.2 g/dL (32.0-36.0) L 01/07/21 04:25 RDW 14.6 % (12.0-15.0) 01/07/21 04:25 Plt Count 67 10^3/uL (130-450) L 01/07/21 04:25 MPV 10.8 fL (7.9-10.8) 01/07/21 04:25 Neut # (Auto) Not Reportable 01/07/21 04:25 Lymph # (Auto) Not Reportable 01/07/21 04:25 [place] # (Auto) Not Reportable 01/07/21 04:25 Eos # (Auto) Not Reportable 01/07/21 04:25 Baso # (Auto) Not Reportable 01/07/21 04:25 Absolute Nucleated RBC Not Reportable 01/07/21 04:25 Total Counted 100 01/07/21 04:25 Band Neuts % (Manual) 5 % (0-10) 01/07/21 04:25 Reactive Lymphs % (Man) 1 % 01/06/21 09:53 Abnorm Lymph % (Manual) 0 % 01/07/21 04:25 Nucleated RBC % Not Reportable 01/07/21 04:25 Neutrophils # (Manual) 1.4 10^3/uL (1.5-6.6) L 01/07/21 04:25 Lymphocytes # (Manual) 0.2 10^3/uL (1.5-3.5) L 01/07/21 04:25 Monocytes # (Manual) 0.0 10^3/uL (0.0-1.0) 01/07/21 04:25 Eosinophils # (Manual) 0.1 10^3/uL (0-0.7) 01/07/21 04:25 Basophils # (Manual) 0.0 10^3/uL (0-0.1) 01/07/21 04:25 Differential Comment MANUAL DIFFERENTIAL 01/07/21 04:25 Manual Slide Review Indicated 01/06/21 09:53 Platelet Estimate DECREASED (<130,000) (NORMAL) 01/07/21 04:25 RBC Morph Micro Appear NORMAL APPEARANCE (NORMAL) 01/07/21 04:25 Sodium 138 mmol/L (135-145) 01/07/21 04:25 Potassium 3.2 mmol/L (3.5-5.0) L 01/07/21 04:25 Chloride 110 mmol/L (101-111) 01/07/21 04:25 Carbon Dioxide 21 mmol/L (21-32) 01/07/21 04:25 Anion Gap 7.0 (6-13) 01/07/21 04:25 BUN 12 mg/dL (6-20) 01/07/21 04:25 Creatinine 0.9 mg/dL (0.4-1.0) 01/07/21 04:25 Estimated GFR (MDRD) 60 (>89) L 01/07/21 04:25 Glucose 97 mg/dL (70-100) 01/07/21 04:25 Lactic Acid 1.9 mmol/L (0.5-2.2) 01/06/21 09:53 Calcium 7.2 mg/dL (8.5-10.3) L 01/07/21 04:25 Total Bilirubin 0.9 mg/dL (0.2-1.0) 01/06/21 09:53 AST 24 IU/L (10-42) 01/06/21 09:53 ALT 24 IU/L (10-60) 01/06/21 09:53 Alkaline Phosphatase 40 IU/L (42-121) L 01/06/21 09:53 Total Protein 6.8 g/dL (6.7-8.2) 01/06/21 09:53 Albumin 4.1 g/dL (3.2-5.5) 01/06/21 09:53 Globulin 2.7 g/dL (2.1-4.2) 01/06/21 09:53 Albumin/Globulin Ratio 1.5 (1.0-2.2) 01/06/21 09:53 Lipase 32 U/L (22-51) 01/06/21 09:53 Urine Color YELLOW 01/06/21 11:00 Urine Clarity CLEAR (CLEAR) 01/06/21 11:00 Urine pH 5.0 PH (5.0-7.5) 01/06/21 11:00 Ur Specific [place] 1.025 (1.002-1.030) 01/06/21 11:00 Urine Protein TRACE mg/dL (NEGATIVE) 01/06/21 11:00 Urine Glucose (UA) NEGATIVE mg/dL (NEGATIVE) 01/06/21 11:00 Urine Ketones NEGATIVE mg/dL (NEGATIVE) 01/06/21 11:00 Urine Occult Blood NEGATIVE (NEGATIVE) 01/06/21 11:00 Urine Nitrite NEGATIVE (NEGATIVE) 01/06/21 11:00 Urine Bilirubin NEGATIVE (NEGATIVE) 01/06/21 11:00 Urine Urobilinogen 0.2 (NORMAL) E.U./dL (NORMAL) 01/06/21 11:00 Ur Leukocyte Esterase NEGATIVE (NEGATIVE) 01/06/21 11:00 Urine RBC 0-5 /HPF (0-5) 01/06/21 11:00 Urine WBC 0-3 /HPF (0-5) 01/06/21 11:00 Ur Squamous Epith Cells FEW Squamous (<= Few) 01/06/21 11:00 Urine Bacteria Few /HPF (None Seen) 01/06/21 11:00 Urine Culture Comments NOT INDICATED 01/06/21 11:00 Nasal Adenovirus (PCR) NOT DETECTED 01/06/21 10:01 Nasal B. parapertussis DNA (PCR) NOT DETECTED 01/06/21 10:01 Nasal Coronavir 229E PCR NOT DETECTED 01/06/21 10:01 Nasal Coronavir HKU1 PCR NOT DETECTED 01/06/21 10:01 Nasal Coronavir NL63 PCR NOT DETECTED 01/06/21 10:01 Nasal Coronavir OC43 PCR NOT DETECTED 01/06/21 10:01 Nasal Enterovir/Rhinovir PCR NOT DETECTED 01/06/21 10:01 Nasal Influenza B PCR NOT DETECTED 01/06/21 10:01 Nasal Influenza A PCR NOT DETECTED 01/06/21 10:01 Nasal Parainfluen 1 PCR NOT DETECTED 01/06/21 10:01 Nasal Parainfluen 2 PCR NOT DETECTED 01/06/21 10:01 Nasal Parainfluen 3 PCR NOT DETECTED 01/06/21 10:01 Nasal Parainfluen 4 PCR NOT DETECTED 01/06/21 10:01 Nasal RSV (PCR) NOT DETECTED 01/06/21 10:01 Nasal B.pertussis DNA PCR NOT DETECTED 01/06/21 10:01 Nasal C.pneumoniae (PCR) NOT DETECTED 01/06/21 10:01 Wing Human Metapneumo PCR NOT DETECTED 01/06/21 10:01 Nasal M.pneumoniae (PCR) NOT DETECTED 01/06/21 10:01 Nasal SARS-CoV-2 (PCR) NOT DETECTED 01/06/21 10:01 ABX Reporting Has patient been on IV antibiotics over the past 48 hours?: Yes
[2021-01-07] MEDS: ENOXAPARIN 40 MG/0.4 ML SYRINGE SUBQ SCH (08:42)
[2021-01-07] MEDS: TRIAMCINOLONE 0.5% CREAM 15 GM TUBE TOP SCH ×2 (08:43→20:39)
[2021-01-07] MEDS: CEFEPIME 2 GM in SODIUM CHLORIDE 0.9% MINIBAG 100 ML IV SCH ×2 (11:12→23:33)
[2021-01-07] MEDS: LOPERAMIDE 2 MG CAPSULE PO PRN ×2 (17:15→23:33)
[2021-01-07] MEDS: VANCOMYCIN INJ 1.75 GM in SODIUM CHLORIDE 0.9% 500 ML IV SCH (20:39)
[2021-01-08] MEDS: SODIUM CHLORIDE FLUSH 0.9% 10 ML SYRINGE IVP SCH ×3 (00:23→16:43)
[2021-01-08] MEDS: SODIUM CHLORIDE 0.9% 1,000 ML IV SCH ×4 (04:16→18:06)
[2021-01-08 05:18] LABS: BASOPHILS % (AUTO) 0.7 %; EOSINOPHILS % (AUTO) 5.6 %; HCT - HEMATOCRIT 25.8 % (37.0-47.0); HGB - HEMOGLOBIN 8.4 g/dL (12.0-16.0); LYMPHOCYTES % (AUTO) 28.7 %; MEAN CORPUSCULAR HEMOGLOBIN 29.2 pg (27.0-31.0); MEAN CORPUSCULAR HGB CONC 32.6 g/dL (32.0-36.0); MEAN CORPUSCULAR VOLUME 89.6 fL (81.0-99.0); MEAN PLATELET VOLUME 11.1 fL (7.9-10.8); MONOCYTES % (AUTO) 2.8 %; NEUTROPHILS % (AUTO) 61.5 %; PLT - PLATELET COUNT 66 10^3/uL (130-450); RED BLOOD COUNT 2.88 10^6/uL (4.20-5.40); RED CELL DISTRIBUTION WIDTH 14.7 % (12.0-15.0)
[2021-01-08 05:24] LABS: ABNORMAL LYMPHS % (MANUAL) 0 %; CALCIUM 7.5 mg/dL (8.5-10.3); CREATININE 0.7 mg/dL (0.4-1.0); POTASSIUM 3.5 mmol/L (3.5-5.0); WHITE BLOOD COUNT 1.4 x10^3/uL (4.8-10.8)
[2021-01-08 05:40] LABS: BAND NEUTROPHILS % (MANUAL) 1 %; DIFFERENTIAL COMMENT MANUAL DIFFERENTIAL; EOSINOPHILS # (MANUAL) 0.1 10^3/uL (0-0.7); LYMPHOCYTES # (MANUAL) 0.4 10^3/uL (1.5-3.5); LYMPHOCYTES % (MANUAL) 29 %; NEUTROPHILS # (MANUAL) 0.9 10^3/uL (1.5-6.6); PLATELET ESTIMATE, MANUAL DECREASED (<130,000) (NORMAL); RBC MORPHOLOGY (MULTIPLE) NORMAL APPEARANCE (NORMAL)
[2021-01-08] MEDS ORDERED: MAGNESIUM SULFATE 2 GRAM 2 GM/50 ML BAG IV ONE (07:25)
--- NOTE | 2021-01-08 07:39 | PROVIDER PROGRESS NOTE ---
Assessment/Plan - Problem List (1) Neutropenic fever Assessment/Plan: Blood Cultures are no growth to date x2 days Patient is afebrile. White blood cell count dropped from 1.7 down to 1.4. Absolute neutrophil count is 900. Vancomycin was discontinued. We will continue cefepime for now. Plan upon discharge would be to switch the patient to an oral agent e.g. Levaquin for 5 days. Tylenol as needed. Continue normal saline at 150 mL/h. (2) Endometrial adenocarcinoma Assessment/Plan: On carboplatin and Taxol. Last administration was 01/05/21 Patient is to follow-up with her oncologist (Dr Mesfin Wren) upon discharge. (3) Neutropenia Assessment/Plan: WBC was 1.4 with an absolute neutrophil count of 900. Patient was started on filgrastim today. She is receiving 300 mcg subcu daily. We will recheck CBC in the morning. Goal is for and ANC greater than 1000. - Current Meds Current Meds: Current Medications Generic Name Dose Route Start Last Admin Trade Name Freq PRN Reason Stop Dose Admin Acetaminophen 650 mg 01/06/21 10:55 01/06/21 17:19 Acetaminophen 325 Mg Tablet PO 650 mg Q6HR PRN Administration Pain 1 to 4 Enoxaparin Sodium 40 mg 01/06/21 11:00 01/07/21 08:42 Enoxaparin 40 Mg/0.4 Ml Syringe SUBQ Not Given DAILY CARLENE Cefepime HCl 2 gm/ Sodium 100 mls @ 200 mls/hr 01/06/21 23:30 01/08/21 00:23 Chloride IV Infused Q12H CARLENE Infusion Sodium Chloride 1,000 mls @ 150 mls/hr 01/06/21 19:32 01/08/21 04:16 Normal Saline 0.9% IV Not Given .Q6H40M CARLENE Vancomycin HCl 1.75 gm/ Sodium 500 mls @ 250 mls/hr 01/06/21 21:00 01/07/21 22:42 Chloride IV Infused Q24H CARLENE Infusion Loperamide HCl 2 mg 01/07/21 17:05 01/07/21 23:33 Loperamide 2 Mg Capsule PO 2 mg QID PRN Administration Diarrhea Sodium Chloride 10 ml 01/06/21 17:00 01/08/21 00:23 Sodium Chloride Flush 0.9% 10 Ml Syringe IVP Not Given 0100,0900,1700 [facility] Triamcinolone Acetonide 1 applic 01/06/21 21:00 01/07/21 20:39 Triamcinolone 0.5% Cream 15 Gm Tube TOP 1 applic BID CARLENE Administration - Lab Result Fish Bone Diagrams: 01/08/21 04:21 01/08/21 04:21 - Additional Planning My Orders: My Active Orders 01/07/21 17:05 Loperamide [Imodium] 2 mg PO QID PRN 01/07/21 17:23 Daily Weight [RC] 59901/08/21 07:25 MAGNESIUM SULFATE 2 GRAMS IV X1 Magnesium Sulfate 2 Gram [Magnesium Sulfate] 2 gm in 50 ml IV ONCE 01/08/21 07:34 Calcium Gluconate/NS 2,000 mg/100 mL x 1 Calcium Gluconate 2,000 mg Sodium Chloride 0.9% 100Ml [Normal Saline 0.9% 100Ml] 100 ml IV ONCE 01/09/21 05:00 BMP - BASIC METABOLIC PANEL [CHEM] DAILYLAB CBC - COMP BLD CT W/AUTO DIFF [HEME] DAILYLAB 01/10/21 05:00 BMP - BASIC METABOLIC PANEL [CHEM] DAILYLAB CBC - COMP BLD CT W/AUTO DIFF [HEME] DAILYLAB 01/11/21 05:00 BMP - BASIC METABOLIC PANEL [CHEM] DAILYLAB CBC - COMP BLD CT W/AUTO DIFF [HEME] DAILYLAB Subjective - Subjective Patient Reports: Other (Patient was seated in bedside chair having breakfast at time of visit. While she had several bouts of diarrhea yesterday, she had no further episodes since last night. She denies any other complaints.) Objective Vital Signs: Vital Signs - 24 hr 01/07/21 01/07/21 15:42 23:38 Temperature 36.9 C 36.8 C Heart Rate [ 64 78 Brachial] Respiratory 20 20 Rate Blood Pressure 123/47 L 128/59 L [Left Brachial artery] O2 Saturation 99 98 Oxygen O2 Source Room air I&O (Last 24 Hrs): Intake and Output Totals x24h 01/06/21 01/07/21 01/08/21 23:59 23:59 23:59 Intake Total 1972.5 4255.0 100 Output Total 350 1600 Balance 1622.5 2655.0 100 General: Alert, Oriented x3, No acute distress HEENT: PERRLA, EOMI Neck: Supple, No JVD Neuro: Alert, Non Focal, Oriented Times 3 Cardiovascular: Regular rate, No murmurs Respiratory: Chest non-tender, No respiratory distress, Breath sounds nml Abdomen: Normal bowel sounds, Soft Extremities: No clubbing, No cyanosis, No edema Skin: No rashes, No breakdown - Results Results: Laboratory Results WBC 1.4 x10^3/uL (4.8-10.8) L* 01/08/21 04:21 RBC 2.88 10^6/uL (4.20-5.40) L 01/08/21 04:21 Hgb 8.4 g/dL (12.0-16.0) L 01/08/21 04:21 Hct 25.8 % (37.0-47.0) L 01/08/21 04:21 MCV 89.6 fL (81.0-99.0) 01/08/21 04:21 MCH 29.2 pg (27.0-31.0) 01/08/21 04:21 MCHC 32.6 g/dL (32.0-36.0) 01/08/21 04:21 RDW 14.7 % (12.0-15.0) 01/08/21 04:21 Plt Count 66 10^3/uL (130-450) L 01/08/21 04:21 MPV 11.1 fL (7.9-10.8) H 01/08/21 04:21 Neut # (Auto) Not Reportable 01/08/21 04:21 Lymph # (Auto) Not Reportable 01/08/21 04:21 [place] # (Auto) Not Reportable 01/08/21 04:21 Eos # (Auto) Not Reportable 01/08/21 04:21 Baso # (Auto) Not Reportable 01/08/21 04:21 Absolute Nucleated RBC Not Reportable 01/08/21 04:21 Total Counted 100 01/08/21 04:21 Band Neuts % (Manual) 1 % (0-10) 01/08/21 04:21 Reactive Lymphs % (Man) 1 % 01/06/21 09:53 Abnorm Lymph % (Manual) 0 % 01/08/21 04:21 Nucleated RBC % Not Reportable 01/08/21 04:21 Neutrophils # (Manual) 0.9 10^3/uL (1.5-6.6) L 01/08/21 04:21 Lymphocytes # (Manual) 0.4 10^3/uL (1.5-3.5) L 01/08/21 04:21 Monocytes # (Manual) 0.0 10^3/uL (0.0-1.0) 01/08/21 04:21 Eosinophils # (Manual) 0.1 10^3/uL (0-0.7) 01/08/21 04:21 Basophils # (Manual) 0.0 10^3/uL (0-0.1) 01/08/21 04:21 Differential Comment MANUAL DIFFERENTIAL 01/08/21 04:21 Manual Slide Review Indicated 01/06/21 09:53 Platelet Estimate DECREASED (<130,000) (NORMAL) 01/08/21 04:21 RBC Morph Micro Appear NORMAL APPEARANCE (NORMAL) 01/08/21 04:21 Sodium 136 mmol/L (135-145) 01/08/21 04:21 Potassium 3.5 mmol/L (3.5-5.0) 01/08/21 04:21 Chloride 110 mmol/L (101-111) 01/08/21 04:21 Carbon Dioxide 19 mmol/L (21-32) L 01/08/21 04:21 Anion Gap 7.0 (6-13) 01/08/21 04:21 BUN 10 mg/dL (6-20) 01/08/21 04:21 Creatinine 0.7 mg/dL (0.4-1.0) 01/08/21 04:21 Estimated GFR (MDRD) 80 (>89) L 01/08/21 04:21 Glucose 89 mg/dL (70-100) 01/08/21 04:21 Lactic Acid 1.9 mmol/L (0.5-2.2) 01/06/21 09:53 Calcium 7.5 mg/dL (8.5-10.3) L 01/08/21 04:21 Magnesium 1.3 mg/dL (1.7-2.8) L 01/07/21 04:25 Total Bilirubin 0.9 mg/dL (0.2-1.0) 01/06/21 09:53 AST 24 IU/L (10-42) 01/06/21 09:53 ALT 24 IU/L (10-60) 01/06/21 09:53 Alkaline Phosphatase 40 IU/L (42-121) L 01/06/21 09:53 Total Protein 6.8 g/dL (6.7-8.2) 01/06/21 09:53 Albumin 4.1 g/dL (3.2-5.5) 01/06/21 09:53 Globulin 2.7 g/dL (2.1-4.2) 01/06/21 09:53 Albumin/Globulin Ratio 1.5 (1.0-2.2) 01/06/21 09:53 Lipase 32 U/L (22-51) 01/06/21 09:53 Urine Color YELLOW 01/06/21 11:00 Urine Clarity CLEAR (CLEAR) 01/06/21 11:00 Urine pH 5.0 PH (5.0-7.5) 01/06/21 11:00 Ur Specific [place] 1.025 (1.002-1.030) 01/06/21 11:00 Urine Protein TRACE mg/dL (NEGATIVE) 01/06/21 11:00 Urine Glucose (UA) NEGATIVE mg/dL (NEGATIVE) 01/06/21 11:00 Urine Ketones NEGATIVE mg/dL (NEGATIVE) 01/06/21 11:00 Urine Occult Blood NEGATIVE (NEGATIVE) 01/06/21 11:00 Urine Nitrite NEGATIVE (NEGATIVE) 01/06/21 11:00 Urine Bilirubin NEGATIVE (NEGATIVE) 01/06/21 11:00 Urine Urobilinogen 0.2 (NORMAL) E.U./dL (NORMAL) 01/06/21 11:00 Ur Leukocyte Esterase NEGATIVE (NEGATIVE) 01/06/21 11:00 Urine RBC 0-5 /HPF (0-5) 01/06/21 11:00 Urine WBC 0-3 /HPF (0-5) 01/06/21 11:00 Ur Squamous Epith Cells FEW Squamous (<= Few) 01/06/21 11:00 Urine Bacteria Few /HPF (None Seen) 01/06/21 11:00 Urine Culture Comments NOT INDICATED 01/06/21 11:00 Nasal Adenovirus (PCR) NOT DETECTED 01/06/21 10:01 Nasal B. parapertussis DNA (PCR) NOT DETECTED 01/06/21 10:01 Nasal Coronavir 229E PCR NOT DETECTED 01/06/21 10:01 Nasal Coronavir HKU1 PCR NOT DETECTED 01/06/21 10:01 Nasal Coronavir NL63 PCR NOT DETECTED 01/06/21 10:01 Nasal Coronavir OC43 PCR NOT DETECTED 01/06/21 10:01 Nasal Enterovir/Rhinovir PCR NOT DETECTED 01/06/21 10:01 Nasal Influenza B PCR NOT DETECTED 01/06/21 10:01 Nasal Influenza A PCR NOT DETECTED 01/06/21 10:01 Nasal Parainfluen 1 PCR NOT DETECTED 01/06/21 10:01 Nasal Parainfluen 2 PCR NOT DETECTED 01/06/21 10:01 Nasal Parainfluen 3 PCR NOT DETECTED 01/06/21 10:01 Nasal Parainfluen 4 PCR NOT DETECTED 01/06/21 10:01 Nasal RSV (PCR) NOT DETECTED 01/06/21 10:01 Nasal B.pertussis DNA PCR NOT DETECTED 01/06/21 10:01 Nasal C.pneumoniae (PCR) NOT DETECTED 01/06/21 10:01 Wing Human Metapneumo PCR NOT DETECTED 01/06/21 10:01 Nasal M.pneumoniae (PCR) NOT DETECTED 01/06/21 10:01 Nasal SARS-CoV-2 (PCR) NOT DETECTED 01/06/21 10:01 Stl C. diff Tox B Gene NEGATIVE (NEGATIVE) 01/07/21 13:10 ABX Reporting Has patient been on IV antibiotics over the past 48 hours?: Yes
[2021-01-08] MEDS ORDERED: CALCIUM GLUCONATE 2,000 MG in SODIUM CHLORIDE 0.9% 100ML 100 ML IV ONE (08:00)
[2021-01-08] MEDS: ENOXAPARIN 40 MG/0.4 ML SYRINGE SUBQ SCH (08:02)
[2021-01-08] MEDS: TRIAMCINOLONE 0.5% CREAM 15 GM TUBE TOP SCH ×2 (08:06→20:05)
[2021-01-08] MEDS: CEFEPIME 2 GM in SODIUM CHLORIDE 0.9% MINIBAG 100 ML IV SCH ×2 (11:32→22:58)
[2021-01-08] MEDS: FILGRASTIM-SNDZ 300 MCG/0.5 ML SYRINGE SUBQ SCH (11:32)
[2021-01-08] MEDS: ACETAMINOPHEN 325 MG TABLET PO PRN (20:02)
[2021-01-09] MEDS: SODIUM CHLORIDE 0.9% 1,000 ML IV SCH (00:32)
[2021-01-09] MEDS: SODIUM CHLORIDE FLUSH 0.9% 10 ML SYRINGE IVP SCH ×2 (00:32→09:08)
[2021-01-09 05:36] LABS: EOSINOPHILS % (AUTO) 2.1 %; HCT - HEMATOCRIT 28.6 % (37.0-47.0); HGB - HEMOGLOBIN 9.1 g/dL (12.0-16.0); LYMPHOCYTES % (AUTO) 21.9 %; MEAN CORPUSCULAR HEMOGLOBIN 28.4 pg (27.0-31.0); MEAN CORPUSCULAR HGB CONC 31.8 g/dL (32.0-36.0); MEAN CORPUSCULAR VOLUME 89.4 fL (81.0-99.0); MEAN PLATELET VOLUME 10.2 fL (7.9-10.8); MONOCYTES % (AUTO) 2.6 %; NEUTROPHILS % (AUTO) 69.3 %; PLT - PLATELET COUNT 73 10^3/uL (130-450); RED CELL DISTRIBUTION WIDTH 14.6 % (12.0-15.0)
[2021-01-09 05:37] LABS: WHITE BLOOD COUNT 1.9 x10^3/uL (4.8-10.8)
[2021-01-09 05:39] LABS: ABNORMAL LYMPHS % (MANUAL) 0 %; BAND NEUTROPHILS % (MANUAL) 0 %
[2021-01-09 05:43] LABS: CALCIUM 8.3 mg/dL (8.5-10.3); CREATININE 0.8 mg/dL (0.4-1.0); POTASSIUM 3.7 mmol/L (3.5-5.0)
[2021-01-09 05:59] LABS: DIFFERENTIAL COMMENT MANUAL DIFFERENTIAL; EOSINOPHILS # (MANUAL) 0.1 10^3/uL (0-0.7); LYMPHOCYTES # (MANUAL) 0.4 10^3/uL (1.5-3.5); LYMPHOCYTES % (MANUAL) 22 %; MONOCYTES # (MANUAL) 0.1 10^3/uL (0.0-1.0); NEUTROPHILS # (MANUAL) 1.3 10^3/uL (1.5-6.6); PLATELET ESTIMATE, MANUAL DECREASED (<130,000) (NORMAL); PLATELET MORPHOLOGY NORMAL APPEARANCE (NORMAL); RBC MORPHOLOGY (MULTIPLE) NORMAL APPEARANCE (NORMAL); WBC MORPHOLOGY (MULTIPLE) NORMAL APPEARANCE (NORMAL)
[2021-01-09 08:22] VITALS: BP 122/59
[2021-01-09] MEDS ORDERED: levoFLOXacin 250 MG TABLET PO SCH (09:00)
[2021-01-09] MEDS: FILGRASTIM-SNDZ 300 MCG/0.5 ML SYRINGE SUBQ SCH (09:07)
[2021-01-09] MEDS: ENOXAPARIN 40 MG/0.4 ML SYRINGE SUBQ SCH (09:07)
[2021-01-09] MEDS: TRIAMCINOLONE 0.5% CREAM 15 GM TUBE TOP SCH (09:08)
--- NOTE | 2021-01-09 11:23 | DISCHARGE SUMMARY ---
Discharge Summary Admit Date: 01/06/21 Discharge Date: 01/09/21 Discharging Provider: Preet Goodwin Primary Care Provider: Benita Crawford Condition at Discharge: Stable Discharge Disposition: 01 Home, Self Care - DIAGNOSES Admission Diagnoses: Neutropenic fever Endometrial adenocarcinoma Neutropenia Discharge Diagnoses with Status of Each Condition: Neutropenic fever: Resolved. 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 At home she had a temperature as high as 101.3 Fahrenheit. Upon presentation to the ED repeat temperature check was 38.2 C. She had chemotherapy infusion yesterday. She is on Taxol and carboplatin. She is being admitted at her oncologist's request for antibiotics and Neupogen. At bedside she is resting comfortably. She denies any complaints. She was shivering yesterday when she was febrile as well. She denies chest pain, dyspnea, abdominal pain, nausea, vomiting, fever or chills. Her WBC was 2.6. - HOSPITAL COURSE Hospital Course: Patient was started on cefepime and IV hydration. She was also put on neutropenic precautions. On the evening of the day of admission she spiked a temperature of 38.3 degree celsius. Blood cultures were drawn at the time of admission. Further 3 days of hospital stay no bacteria grew in the blood cultures. The patient several episodes of diarrhea on 01/07/21. A C. difficile test was negative. She was treated with Imodium and her symptoms resolved. Her white blood cell count dropped to 1.4 with an absolute neutrophil count of 900. As a result she was given a dose of Neupogen 300 mcg subcu x1. On the day of discharge her white blood cell count was 1.9 with an absolute neutrophil count of 1300. IV antibiotics were discontinued. She was given a dose of Levaquin 500 mg p.o. x1 in the hospital and a prescription of Levaquin 500 mg p.o. daily for 5 days. She has a follow-up appointment with her oncologist on 01/13/21 which she has been advised to keep. Usually she has lab work done the day before the appointment. She has also been advised to get the labs done. She is being discharged in stable condition. She has been advised to avoid public settings to minimize her risk of exposure to infection. She expressed understanding to the above and was in agreement. - ALLERGIES Allergies/Adverse Reactions: Allergies Allergy/AdvReac Type Severity Reaction Status Date / Time No Known Drug Allergies Allergy Verified 01/06/21 09:14 - MEDICATIONS Home Medications: Ambulatory Orders Medication Instructions Recorded Confirmed Beclomethasone Dipropionate [Qvar 2 puffs INH DAILY PRN 01/06/21 01/07/21 Redihaler (80 mcg)] Benzonatate [Tessalon] 100 mg PO TID PRN 01/06/21 01/07/21 Ondansetron HCl [Zofran] 8 mg PO Q8H PRN 01/06/21 01/07/21 Prochlorperazine [Compazine] 10 mg PO Q6H PRN 01/06/21 01/07/21 Triamcinolone Acetonide 1 applic TOP BID 01/06/21 01/06/21 levoFLOXacin [Levaquin] 500 mg PO DAILY 5 Days #5 tablet 01/09/21 - PHYSICAL EXAM AT DISCHARGE General Appearance: positive: No acute distress, Alert Eyes Bilateral: positive: PERRL, EOMI ENT: positive: No signs of dehydration Neck: positive: No JVD, Trachea midline Respiratory: positive: Chest non-tender, No respiratory distress, Breath sounds nml. negative: Wheezes, Rales, Rhonchi Cardiovascular: positive: Regular rate & rhythm, No murmur Abdomen: positive: Non-tender, No organomegaly, Nml bowel sounds, No distention. negative: Guarding, Rebound Back: positive: Nml inspection Skin: positive: Color nml, No rash, Warm, Dry Extremities: positive: Non-tender, Full ROM, Nml appearance, No pedal edema Neurologic/Psychiatric: positive: Oriented x3, Mood/affect nml - LABS Result Diagrams: 01/09/21 05:30 01/09/21 05:30 - TIME SPENT Time Spent in Discharge (Minutes): 25
--- NOTE | 2021-01-09 11:30 | Discharge Plan ---
Discharge Plan Problem Reviewed?: Yes Disposition: Home, Self Care Condition: Stable Prescriptions: levoFLOXacin [Levaquin] 500 mg PO DAILY 5 Days #5 tablet Activity Restrictions: Activity as Tolerated Instruction Topics: Neutropenia, Neupogen, Oncology Infecs Prevent Health Concerns: You were admitted on 01/06/21 with fever. You had a temperature of 38.2 C. Your white blood cell count at the time was 2.6. You were admitted for neutropenic fever. Blood cultures were drawn. There was no growth of bacteria in the blood cultures after 2 days. During the course of your hospital stay you were treated with vancomycin and cefepime. These were discontinued on the last day and you where given a dose of Levaquin 500 mg p.o. x1. You were prescribed Levaquin 500 mg p.o. daily for 5 days. You have a follow-up appointment with your oncologist Dr. Mesfin Wren on Tuesday01/13/21 for your next chemotherapy. You have been advised to keep the appointment. Usually you have labs drawn the day before your appointment. You have been advised to do so. In the course of your hospital stay your white blood cell count dropped to as low as 1.4 with an absolute neutrophil count of 900. As a result you were given 1 dose of Neupogen 300 mcg subcu x1. Your absolute neutrophil count improved to 1300 the following day. You are being discharged in stable condition. You have been advised to avoid exposure to people in public settings if you can help with to minimize the chances of the risk of infection. You expressed understanding of the above plan and are in agreement. Plan of Treatment: You were admitted on 01/06/21 with fever. You had a temperature of 38.2 C. Your white blood cell count at the time was 2.6. You were admitted for neutropenic fever. Blood cultures were drawn. There was no growth of bacteria in the blood cultures after 2 days. During the course of your hospital stay you were treated with vancomycin and cefepime. These were discontinued on the last day and you where given a dose of Levaquin 500 mg p.o. x1. You were prescribed Levaquin 500 mg p.o. daily for 5 days. You have a follow-up appointment with your oncologist Dr. Mesfin Wren on Tuesday01/13/21 for your next chemotherapy. You have been advised to keep the appointment. Usually you have labs drawn the day before your appointment. You have been advised to do so. In the course of your hospital stay your white blood cell count dropped to as low as 1.4 with an absolute neutrophil count of 900. As a result you were given 1 dose of Neupogen 300 mcg subcu x1. Your absolute neutrophil count improved to 1300 the following day. You are being discharged in stable condition. You have been advised to avoid exposure to people in public settings if you can help with to minimize the chances of the risk of infection. You expressed understanding of the above plan and are in agreement. Care Goals: You were admitted on 01/06/21 with fever. You had a temperature of 38.2 C. Your white blood cell count at the time was 2.6. You were admitted for neutropenic fever. Blood cultures were drawn. There was no growth of bacteria in the blood cultures after 2 days. During the course of your hospital stay you were treated with vancomycin and cefepime. These were discontinued on the last day and you where given a dose of Levaquin 500 mg p.o. x1. You were prescribed Levaquin 500 mg p.o. daily for 5 days. You have a follow-up appointment with your oncologist Dr. Mesfin Wren on Tuesday01/13/21 for your next chemotherapy. You have been advised to keep the appointment. Usually you have labs drawn the day before your appointment. You have been advised to do so. In the course of your hospital stay your white blood cell count dropped to as low as 1.4 with an absolute neutrophil count of 900. As a result you were given 1 dose of Neupogen 300 mcg subcu x1. Your absolute neutrophil count improved to 1300 the following day. You are being discharged in stable condition. You have been advised to avoid exposure to people in public settings if you can help with to minimize the chances of the risk of infection. You expressed understanding of the above plan and are in agreement. Assessment: You were admitted on 01/06/21 with fever. You had a temperature of 38.2 C. Your white blood cell count at the time was 2.6. You were admitted for neutropenic fever. Blood cultures were drawn. There was no growth of bacteria in the blood cultures after 2 days. During the course of your hospital stay you were treated with vancomycin and cefepime. These were discontinued on the last day and you where given a dose of Levaquin 500 mg p.o. x1. You were prescribed Levaquin 500 mg p.o. daily for 5 days. You have a follow-up appointment with your oncologist Dr. Mesfin Wren on Tuesday01/13/21 for your next chemotherapy. You have been advised to keep the appointment. Usually you have labs drawn the day before your appointment. You have been advised to do so. In the course of your hospital stay your white blood cell count dropped to as low as 1.4 with an absolute neutrophil count of 900. As a result you were given 1 dose of Neupogen 300 mcg subcu x1. Your absolute neutrophil count improved to 1300 the following day. You are being discharged in stable condition. You have been advised to avoid exposure to people in public settings if you can help with to minimize the chances of the risk of infection. You expressed understanding of the above plan and are in agreement. No Smoking: If you smoke, Please STOP! Call for help. Follow-up with: Benita Crawford ARNP [Primary Care Provider] -
== END 2021-01-09 12:59 | disposition home or self-care (01) | DRG 809 ==
LOC: ED 09:00 → MS2 10:55
PROVIDERS: ADMIT Internal Medicine; ATTEND Internal Medicine
DX: D70.9 Neutropenia, unspecified (principal); D70.1 Agranulocytosis secondary to cancer chemotherapy; C78.02 Secondary malignant neoplasm of left lung; C78.00 Secondary malignant neoplasm of unspecified lung; C78.01 Secondary malignant neoplasm of right lung; T45.1X5A Adverse effect of antineoplastic and immunosuppressive drugs, initial encounter; Y92.531 Health care provider office as the place of occurrence of the external cause; R50.81 Fever presenting with conditions classified elsewhere; C54.1 Malignant neoplasm of endometrium; Z79.899 Other long term (current) drug therapy; Z90.710 Acquired absence of both cervix and uterus; Z20.822 Contact with and (suspected) exposure to COVID-19
CPT/HCPCS: 36415; 71046; 80048; 80053; 81001; 83605; 83690; 83735; 85025; 87040; 87493; 87631; 99284; 99285; A9270; J1650; J3370; Q5101; 0202U; 87086

== ENCOUNTER 2021-01-13 10:25 | Outpatient (CLI) | payer MEDICARE, OTHER ==
[2021-01-13 17:15] LABS: BASOPHILS % (AUTO) 1.1 %; EOSINOPHILS % (AUTO) 1.6 %; HCT - HEMATOCRIT 29.8 % (37.0-47.0); HGB - HEMOGLOBIN 9.5 g/dL (12.0-16.0); LYMPHOCYTES % (AUTO) 45.6 %; MEAN CORPUSCULAR HEMOGLOBIN 28.5 pg (27.0-31.0); MEAN CORPUSCULAR HGB CONC 31.9 g/dL (32.0-36.0); MEAN CORPUSCULAR VOLUME 89.5 fL (81.0-99.0); MEAN PLATELET VOLUME 10.7 fL (7.9-10.8); MONOCYTES % (AUTO) 23.6 %; PLT - PLATELET COUNT 109 10^3/uL (130-450); RED BLOOD COUNT 3.33 10^6/uL (4.20-5.40); RED CELL DISTRIBUTION WIDTH 14.1 % (12.0-15.0)
[2021-01-13 17:37] LABS: WHITE BLOOD COUNT 1.8 x10^3/uL (4.8-10.8)
[2021-01-13 17:38] LABS: ABNORMAL LYMPHS % (MANUAL) 0 %; BAND NEUTROPHILS % (MANUAL) 0 %
[2021-01-13 20:46] LABS: BASOPHILS % (MANUAL) 1 %; DIFFERENTIAL COMMENT MANUAL DIFFERENTIAL; LYMPHOCYTES # (MANUAL) 0.9 10^3/uL (1.5-3.5); LYMPHOCYTES % (MANUAL) 49 %; MONOCYTES # (MANUAL) 0.5 10^3/uL (0.0-1.0); NEUTROPHILS # (MANUAL) 0.4 10^3/uL (1.5-6.6); PLATELET ESTIMATE, MANUAL DECREASED (<130,000) (NORMAL); PLATELET MORPHOLOGY NORMAL APPEARANCE (NORMAL); RBC MORPHOLOGY (MULTIPLE) NORMAL APPEARANCE (NORMAL); WBC MORPHOLOGY (MULTIPLE) NORMAL APPEARANCE (NORMAL)
== END 2021-01-13 10:26 | disposition home or self-care (01) ==
LOC: LAB.S 10:25
PROVIDERS: ATTEND Internal Medicine
DX: C54.1 Malignant neoplasm of endometrium (principal)
CPT/HCPCS: 36415; 85025

== ENCOUNTER 2021-01-18 12:18 | Outpatient (CLI) | payer MEDICARE, OTHER ==
[2021-01-18 18:22] LABS: BASOPHILS % (AUTO) 0.7 %; EOSINOPHILS % (AUTO) 0.5 %; HCT - HEMATOCRIT 29.7 % (37.0-47.0); HGB - HEMOGLOBIN 9.2 g/dL (12.0-16.0); LYMPHOCYTES # (AUTO) 1.4 10^3/uL (1.5-3.5); LYMPHOCYTES % (AUTO) 33.3 %; MEAN CORPUSCULAR HEMOGLOBIN 28.9 pg (27.0-31.0); MEAN CORPUSCULAR VOLUME 93.4 fL (81.0-99.0); MEAN PLATELET VOLUME 10.5 fL (7.9-10.8); MONOCYTES % (AUTO) 24.2 %; NEUTROPHILS # (AUTO) 1.7 10^3/uL (1.5-6.6); NEUTROPHILS % (AUTO) 40.3 %; PLT - PLATELET COUNT 73 10^3/uL (130-450); RED BLOOD COUNT 3.18 10^6/uL (4.20-5.40); RED CELL DISTRIBUTION WIDTH 14.3 % (12.0-15.0); WHITE BLOOD COUNT 4.2 x10^3/uL (4.8-10.8)
== END 2021-01-18 12:19 | disposition home or self-care (01) ==
LOC: LAB.S 12:18
PROVIDERS: ATTEND Internal Medicine
DX: C54.1 Malignant neoplasm of endometrium (principal)
CPT/HCPCS: 36415; 85025

== ENCOUNTER 2021-01-24 10:26 | Outpatient (CLI) | payer MEDICARE, OTHER ==
[2021-01-24 15:42] LABS: BASOPHILS % (AUTO) 0.6 %; EOSINOPHILS # (AUTO) 0.1 10^3/uL (0.0-0.7); EOSINOPHILS % (AUTO) 2.7 %; HCT - HEMATOCRIT 29.2 % (37.0-47.0); HGB - HEMOGLOBIN 9.2 g/dL (12.0-16.0); LYMPHOCYTES # (AUTO) 1.2 10^3/uL (1.5-3.5); LYMPHOCYTES % (AUTO) 35.9 %; MEAN CORPUSCULAR HEMOGLOBIN 28.9 pg (27.0-31.0); MEAN CORPUSCULAR HGB CONC 31.5 g/dL (32.0-36.0); MEAN CORPUSCULAR VOLUME 91.8 fL (81.0-99.0); MEAN PLATELET VOLUME 11.3 fL (7.9-10.8); MONOCYTES # (AUTO) 0.2 10^3/uL (0.0-1.0); MONOCYTES % (AUTO) 7.2 %; NEUTROPHILS # (AUTO) 1.8 10^3/uL (1.5-6.6); NEUTROPHILS % (AUTO) 53.3 %; PLT - PLATELET COUNT 65 10^3/uL (130-450); RED BLOOD COUNT 3.18 10^6/uL (4.20-5.40); RED CELL DISTRIBUTION WIDTH 14.9 % (12.0-15.0); WHITE BLOOD COUNT 3.3 x10^3/uL (4.8-10.8)
== END 2021-01-24 10:27 | disposition home or self-care (01) ==
LOC: LAB.S 10:26
PROVIDERS: ATTEND Internal Medicine
DX: C54.1 Malignant neoplasm of endometrium (principal)
CPT/HCPCS: 36415; 85025

== ENCOUNTER 2021-01-31 10:56 | Outpatient (CLI) | payer MEDICARE, OTHER ==
[2021-01-31 15:24] LABS: BASOPHILS % (AUTO) 0.3 %; EOSINOPHILS % (AUTO) 0.3 %; HCT - HEMATOCRIT 28.2 % (37.0-47.0); HGB - HEMOGLOBIN 8.9 g/dL (12.0-16.0); LYMPHOCYTES # (AUTO) 1.2 10^3/uL (1.5-3.5); LYMPHOCYTES % (AUTO) 39.5 %; MEAN CORPUSCULAR HEMOGLOBIN 29.1 pg (27.0-31.0); MEAN CORPUSCULAR HGB CONC 31.6 g/dL (32.0-36.0); MEAN CORPUSCULAR VOLUME 92.2 fL (81.0-99.0); MEAN PLATELET VOLUME 10.6 fL (7.9-10.8); MONOCYTES # (AUTO) 0.3 10^3/uL (0.0-1.0); MONOCYTES % (AUTO) 8.8 %; NEUTROPHILS # (AUTO) 1.5 10^3/uL (1.5-6.6); NEUTROPHILS % (AUTO) 49.7 %; PLT - PLATELET COUNT 251 10^3/uL (130-450); RED BLOOD COUNT 3.06 10^6/uL (4.20-5.40); RED CELL DISTRIBUTION WIDTH 15.9 % (12.0-15.0)
[2021-01-31 15:34] LABS: ALBUMIN 3.5 g/dL (3.2-5.5); ALBUMIN/GLOBULIN RATIO 1.3 (1.0-2.2); BILIRUBIN,TOTAL 0.9 mg/dL (0.2-1.0); CREATININE 0.9 mg/dL (0.4-1.0); POTASSIUM 3.9 mmol/L (3.5-5.0); TOTAL PROTEIN 6.3 g/dL (6.7-8.2)
[2021-01-31 16:42] LABS: PLATELET ESTIMATE, MANUAL NORMAL (130-450,000) (NORMAL); PLATELET MORPHOLOGY NORMAL APPEARANCE (NORMAL); RBC MORPHOLOGY (MULTIPLE) NORMAL APPEARANCE (NORMAL); WBC MORPHOLOGY (MULTIPLE) NORMAL APPEARANCE (NORMAL)
== END 2021-01-31 10:57 | disposition home or self-care (01) ==
LOC: LAB.S 10:56
PROVIDERS: ATTEND Internal Medicine
DX: C54.1 Malignant neoplasm of endometrium (principal)
CPT/HCPCS: 36415; 80053; 85025

== ENCOUNTER 2021-02-28 09:04 | Outpatient (CLI) | payer MEDICARE, OTHER ==
[2021-02-28 15:21] LABS: BASOPHILS % (AUTO) 1.4 %; EOSINOPHILS % (AUTO) 0.7 %; HCT - HEMATOCRIT 27.9 % (37.0-47.0); HGB - HEMOGLOBIN 8.8 g/dL (12.0-16.0); LYMPHOCYTES # (AUTO) 1.1 10^3/uL (1.5-3.5); LYMPHOCYTES % (AUTO) 37.7 %; MEAN CORPUSCULAR HEMOGLOBIN 30.9 pg (27.0-31.0); MEAN CORPUSCULAR HGB CONC 31.5 g/dL (32.0-36.0); MEAN CORPUSCULAR VOLUME 97.9 fL (81.0-99.0); MEAN PLATELET VOLUME 10.6 fL (7.9-10.8); MONOCYTES # (AUTO) 0.7 10^3/uL (0.0-1.0); MONOCYTES % (AUTO) 24.9 %; PLT - PLATELET COUNT 126 10^3/uL (130-450); RED BLOOD COUNT 2.85 10^6/uL (4.20-5.40); RED CELL DISTRIBUTION WIDTH 21.1 % (12.0-15.0); WHITE BLOOD COUNT 2.9 x10^3/uL (4.8-10.8)
[2021-02-28 15:27] LABS: SLIDE REVIEW? Indicated
[2021-02-28 15:29] LABS: ALBUMIN 3.6 g/dL (3.2-5.5); ALBUMIN/GLOBULIN RATIO 1.4 (1.0-2.2); BILIRUBIN,TOTAL 0.8 mg/dL (0.2-1.0); CALCIUM 8.9 mg/dL (8.5-10.3); CREATININE 0.9 mg/dL (0.4-1.0); POTASSIUM 3.6 mmol/L (3.5-5.0); TOTAL PROTEIN 6.1 g/dL (6.7-8.2)
[2021-02-28 16:01] LABS: PLATELET ESTIMATE, MANUAL DECREASED (<130,000) (NORMAL); PLATELET MORPHOLOGY NORMAL APPEARANCE (NORMAL)
== END 2021-02-28 09:05 | disposition home or self-care (01) ==
LOC: LAB.S 09:04
PROVIDERS: ATTEND Internal Medicine
DX: C54.1 Malignant neoplasm of endometrium (principal)
CPT/HCPCS: 36415; 80053; 85025

== ENCOUNTER 2021-05-25 09:09 | Outpatient (CLI) | payer MEDICARE, OTHER ==
[2021-05-25 15:30] LABS: ALBUMIN 3.7 g/dL (3.2-5.5); ALBUMIN/GLOBULIN RATIO 1.4 (1.0-2.2); BILIRUBIN,TOTAL 0.7 mg/dL (0.2-1.0); CALCIUM 9.3 mg/dL (8.5-10.3); POTASSIUM 3.7 mmol/L (3.5-5.0); TOTAL PROTEIN 6.3 g/dL (6.7-8.2)
[2021-05-25 16:57] LABS: BASOPHILS % (AUTO) 0.8 %; EOSINOPHILS # (AUTO) 0.1 10^3/uL (0.0-0.7); EOSINOPHILS % (AUTO) 2.3 %; HGB - HEMOGLOBIN 11.6 g/dL (12.0-16.0); LYMPHOCYTES # (AUTO) 0.4 10^3/uL (1.5-3.5); LYMPHOCYTES % (AUTO) 7.5 %; MEAN CORPUSCULAR HEMOGLOBIN 33.6 pg (27.0-31.0); MEAN CORPUSCULAR HGB CONC 32.2 g/dL (32.0-36.0); MEAN CORPUSCULAR VOLUME 104.3 fL (81.0-99.0); MEAN PLATELET VOLUME 10.1 fL (7.9-10.8); MONOCYTES # (AUTO) 0.8 10^3/uL (0.0-1.0); MONOCYTES % (AUTO) 15.6 %; NEUTROPHILS # (AUTO) 3.8 10^3/uL (1.5-6.6); NEUTROPHILS % (AUTO) 73.6 %; PLT - PLATELET COUNT 173 10^3/uL (130-450); RED BLOOD COUNT 3.45 10^6/uL (4.20-5.40); RED CELL DISTRIBUTION WIDTH 13.1 % (12.0-15.0); WHITE BLOOD COUNT 5.2 x10^3/uL (4.8-10.8)
== END 2021-05-25 09:10 | disposition home or self-care (01) ==
LOC: LAB.S 09:09
PROVIDERS: ATTEND Internal Medicine
DX: C54.1 Malignant neoplasm of endometrium (principal)
CPT/HCPCS: 36415; 80053; 85025; 86304

== ENCOUNTER 2022-07-20 09:28 | Outpatient (CLI) | payer MEDICARE, OTHER ==
[2022-07-20 14:26] LABS: BASOPHILS % (AUTO) 0.8 %; EOSINOPHILS # (AUTO) 0.1 10^3/uL (0.0-0.7); EOSINOPHILS % (AUTO) 2.1 %; HCT - HEMATOCRIT 38.8 % (37.0-47.0); HGB - HEMOGLOBIN 12.2 g/dL (12.0-16.0); LYMPHOCYTES # (AUTO) 1.2 10^3/uL (1.5-3.5); LYMPHOCYTES % (AUTO) 25.4 %; MEAN CORPUSCULAR HEMOGLOBIN 30.3 pg (27.0-31.0); MEAN CORPUSCULAR HGB CONC 31.4 g/dL (32.0-36.0); MEAN CORPUSCULAR VOLUME 96.3 fL (81.0-99.0); MONOCYTES # (AUTO) 0.8 10^3/uL (0.0-1.0); MONOCYTES % (AUTO) 16.1 %; NEUTROPHILS # (AUTO) 2.6 10^3/uL (1.5-6.6); NEUTROPHILS % (AUTO) 55.2 %; PLT - PLATELET COUNT 205 10^3/uL (130-450); RED BLOOD COUNT 4.03 10^6/uL (4.20-5.40); RED CELL DISTRIBUTION WIDTH 14.8 % (12.0-15.0); WHITE BLOOD COUNT 4.7 x10^3/uL (4.8-10.8)
[2022-07-20 15:03] LABS: THYROID STIMULATING HORMONE 3.54 uIU/mL (0.34-5.60)
[2022-07-20 15:12] LABS: ALBUMIN 3.8 g/dL (3.2-5.5); ALBUMIN/GLOBULIN RATIO 1.4 (1.0-2.2); ALKALINE PHOSPHATASE 42 IU/L (42-121); ALT ALANINE AMINOTRANSFERASE 23 IU/L (10-60); AST ASPARTATE AMINOTRANSFERASE 26 IU/L (10-42); BILIRUBIN,TOTAL 0.8 mg/dL (0.2-1.0); BUN - BLOOD UREA NITROGEN 24 mg/dL (6-20); CALCIUM 9.5 mg/dL (8.5-10.3); CARBON DIOXIDE - CO2 29 mmol/L (21-32); CHLORIDE 101 mmol/L (101-111); CHOL/HDL RATIO 1.8 (<4.4); CHOLESTEROL 167 mg/dL; GFR - MDRD 53 (>89); GLUCOSE 94 mg/dL (70-100); HDL CHOLESTEROL 95 mg/dL; POTASSIUM 4.1 mmol/L (3.5-5.0); SODIUM 138 mmol/L (135-145); TOTAL PROTEIN 6.6 g/dL (6.7-8.2); TRIGLYCERIDES 32 mg/dL
== END 2022-07-20 09:29 | disposition home or self-care (01) ==
LOC: LAB.S 09:28
PROVIDERS: ATTEND Internal Medicine
DX: E78.5 Hyperlipidemia, unspecified (principal); Z79.899 Other long term (current) drug therapy
CPT/HCPCS: 36415; 80053; 80061; 83721; 84443; 85025

== ENCOUNTER 2022-11-02 07:04 | Outpatient (CLI) | payer MEDICARE, OTHER ==
[2022-11-02 15:21] LABS: ALBUMIN 3.7 g/dL (3.2-5.5); ALBUMIN/GLOBULIN RATIO 1.6 (1.0-2.2); BILIRUBIN,TOTAL 0.7 mg/dL (0.2-1.0); CALCIUM 9.3 mg/dL (8.5-10.3); CREATININE 0.9 mg/dL (0.4-1.0); POTASSIUM 4.1 mmol/L (3.5-5.0)
== END 2022-11-02 07:05 | disposition home or self-care (01) ==
LOC: LAB.S 07:04
PROVIDERS: ATTEND Internal Medicine
DX: M81.0 Age-related osteoporosis without current pathological fracture (principal)
CPT/HCPCS: 36415; 80053

== ENCOUNTER 2023-02-01 11:47 | Outpatient (CLI) | payer MEDICARE, OTHER ==
[2023-02-01 14:58] LABS: BASOPHILS % (AUTO) 0.8 %; EOSINOPHILS % (AUTO) 3.5 %; HCT - HEMATOCRIT 33.5 % (37.0-47.0); HGB - HEMOGLOBIN 10.7 g/dL (12.0-16.0); LYMPHOCYTES % (AUTO) 21.3 %; MEAN CORPUSCULAR HEMOGLOBIN 27.9 pg (27.0-31.0); MEAN CORPUSCULAR HGB CONC 31.9 g/dL (32.0-36.0); MEAN CORPUSCULAR VOLUME 87.5 fL (81.0-99.0); MEAN PLATELET VOLUME 12.3 fL (7.9-10.8); NEUTROPHILS % (AUTO) 57.2 %; PLT - PLATELET COUNT 143 10^3/uL (130-450); RED BLOOD COUNT 3.83 10^6/uL (4.20-5.40); RED CELL DISTRIBUTION WIDTH 18.9 % (12.0-15.0); WHITE BLOOD COUNT 4.9 x10^3/uL (4.8-10.8)
[2023-02-01 15:04] LABS: ABNORMAL LYMPHS % (MANUAL) 0 %
[2023-02-01 15:29] LABS: ALBUMIN 3.9 g/dL (3.2-5.5); ALBUMIN/GLOBULIN RATIO 1.7 (1.0-2.2); BILIRUBIN,TOTAL 0.7 mg/dL (0.2-1.0); CALCIUM 9.8 mg/dL (8.5-10.3); CREATININE 0.9 mg/dL (0.6-1.3); POTASSIUM 4.3 mmol/L (3.5-4.5); TOTAL PROTEIN 6.2 g/dL (6.4-8.9)
[2023-02-01 15:38] LABS: CA 125 24.8 U/mL (0.5-35.0)
[2023-02-01 16:14] LABS: BAND NEUTROPHILS % (MANUAL) 1 %; BASOPHILS % (MANUAL) 1 %; EOSINOPHILS # (MANUAL) 0.2 10^3/uL (0-0.7); LYMPHOCYTES # (MANUAL) 1.3 10^3/uL (1.5-3.5); LYMPHOCYTES % (MANUAL) 18 %; MONOCYTES # (MANUAL) 0.4 10^3/uL (0.0-1.0); NEUTROPHILS # (MANUAL) 2.9 10^3/uL (1.5-6.6); NUCLEATED RBC (MANUAL) 1 %; PLATELET ESTIMATE, MANUAL NORMAL (130-450,000) (NORMAL); PLATELET MORPHOLOGY NORMAL APPEARANCE (NORMAL); RBC MORPHOLOGY (MULTIPLE) 1+ ANISOCYTOSIS (NORMAL); REACTIVE LYMPHS % (MANUAL) 8 %
[2023-02-01 16:15] LABS: DIFFERENTIAL COMMENT MANUAL DIFFERENTIAL
== END 2023-02-01 11:48 | disposition home or self-care (01) ==
LOC: LAB.S 11:47
PROVIDERS: ATTEND Internal Medicine
DX: C54.1 Malignant neoplasm of endometrium (principal)
CPT/HCPCS: 36415; 80053; 85025; 86304

== ENCOUNTER 2023-04-27 10:51 | Outpatient (CLI) | payer MEDICARE, OTHER ==
[2023-04-27 15:14] LABS: BASOPHILS % (AUTO) 0.8 %; EOSINOPHILS % (AUTO) 2.1 %; HCT - HEMATOCRIT 36.9 % (37.0-47.0); HGB - HEMOGLOBIN 11.3 g/dL (12.0-16.0); LYMPHOCYTES % (AUTO) 18.3 %; MEAN CORPUSCULAR HEMOGLOBIN 26.7 pg (27.0-31.0); MEAN CORPUSCULAR HGB CONC 30.6 g/dL (32.0-36.0); MEAN PLATELET VOLUME 11.1 fL (7.9-10.8); MONOCYTES % (AUTO) 14.1 %; NEUTROPHILS % (AUTO) 64.5 %; PLT - PLATELET COUNT 146 10^3/uL (130-450); RED BLOOD COUNT 4.24 10^6/uL (4.20-5.40); RED CELL DISTRIBUTION WIDTH 20.7 % (12.0-15.0); WHITE BLOOD COUNT 5.3 x10^3/uL (4.8-10.8)
[2023-04-27 15:32] LABS: ABNORMAL LYMPHS % (MANUAL) 0 %; BAND NEUTROPHILS % (MANUAL) 0 %
[2023-04-27 15:49] LABS: ALBUMIN 4.2 g/dL (3.2-5.5); ALBUMIN/GLOBULIN RATIO 1.9 (1.0-2.2); BILIRUBIN,TOTAL 0.8 mg/dL (0.2-1.0); CALCIUM 9.6 mg/dL (8.5-10.3); CREATININE 0.9 mg/dL (0.6-1.3); POTASSIUM 4.1 mmol/L (3.5-4.5); TOTAL PROTEIN 6.4 g/dL (6.4-8.9)
[2023-04-27 16:28] LABS: EOSINOPHILS # (MANUAL) 0.1 10^3/uL (0-0.7); LYMPHOCYTES # (MANUAL) 1.1 10^3/uL (1.5-3.5); LYMPHOCYTES % (MANUAL) 9 %; MONOCYTES # (MANUAL) 0.4 10^3/uL (0.0-1.0); NEUTROPHILS # (MANUAL) 3.7 10^3/uL (1.5-6.6); PLATELET MORPHOLOGY NORMAL APPEARANCE (NORMAL); REACTIVE LYMPHS % (MANUAL) 11 %
[2023-04-27 16:29] LABS: DIFFERENTIAL COMMENT MANUAL DIFFERENTIAL; PLATELET ESTIMATE, MANUAL NORMAL (130-450,000) (NORMAL)
== END 2023-04-27 10:52 | disposition home or self-care (01) ==
LOC: LAB.S 10:51
PROVIDERS: ATTEND Internal Medicine
DX: M81.0 Age-related osteoporosis without current pathological fracture (principal); C54.1 Malignant neoplasm of endometrium
CPT/HCPCS: 36415; 80053; 85025; 86304

== ENCOUNTER 2023-05-13 08:00 | Outpatient (CLI) | payer MEDICARE, OTHER | END 2023-05-13 23:59 | disposition home or self-care (01) | LOC: LAB.S 08:00 | PROVIDERS: ATTEND Physician Assistant | DX: J06.9 Acute upper respiratory infection, unspecified (principal); J20.9 Acute bronchitis, unspecified; Z20.822 Contact with and (suspected) exposure to COVID-19 ==

== ENCOUNTER 2023-08-09 08:12 | Outpatient (CLI) | payer MEDICARE, OTHER ==
[2023-08-09 16:38] LABS: ALBUMIN 3.7 g/dL (3.2-5.5); ALBUMIN/GLOBULIN RATIO 1.5 (1.0-2.2); ALKALINE PHOSPHATASE 38 IU/L (42-121); ALT ALANINE AMINOTRANSFERASE 14 IU/L (10-60); AST ASPARTATE AMINOTRANSFERASE 19 IU/L (10-42); BILIRUBIN,TOTAL 0.6 mg/dL (0.2-1.0); BUN - BLOOD UREA NITROGEN 27 mg/dL (6-20); CALCIUM 9.4 mg/dL (8.5-10.3); CARBON DIOXIDE - CO2 26 mmol/L (21-32); CHLORIDE 107 mmol/L (101-111); CHOL/HDL RATIO 1.8 (<4.4); CHOLESTEROL 135 mg/dL; CREATININE 0.9 mg/dL (0.6-1.3); GFR - MDRD 60 (>89); GLUCOSE 77 mg/dL (74-104); HDL CHOLESTEROL 73 mg/dL; LDL CHOLESTEROL,CALCULATED 53 mg/dL; LDL/HDL RATIO 0.7 (<4.4); POTASSIUM 4.1 mmol/L (3.5-4.5); SODIUM 141 mmol/L (135-145); TOTAL PROTEIN 6.1 g/dL (6.4-8.9); TRIGLYCERIDES 47 mg/dL (48-352); VLDL CHOLESTEROL 9 mg/dL
== END 2023-08-09 08:13 | disposition home or self-care (01) ==
LOC: LAB.S 08:12
PROVIDERS: ATTEND Internal Medicine
DX: E78.5 Hyperlipidemia, unspecified (principal); Z13.228 Encounter for screening for other metabolic disorders; Z79.899 Other long term (current) drug therapy; Z13.0 Encounter for screening for diseases of the blood and blood-forming organs and certain disorders involving the immune mechanism
CPT/HCPCS: 36415; 80053; 80061; 83721; 85025

== ENCOUNTER 2023-08-10 14:03 | Outpatient (CLI) | payer MEDICARE, OTHER ==
[2023-08-10 20:01] LABS: EOSINOPHILS % (AUTO) 5.2 %; HCT - HEMATOCRIT 35.4 % (37.0-47.0); HGB - HEMOGLOBIN 10.9 g/dL (12.0-16.0); LYMPHOCYTES % (AUTO) 17.1 %; MEAN CORPUSCULAR HEMOGLOBIN 27.7 pg (27.0-31.0); MEAN CORPUSCULAR HGB CONC 30.8 g/dL (32.0-36.0); MEAN CORPUSCULAR VOLUME 89.8 fL (81.0-99.0); MEAN PLATELET VOLUME 12.8 fL (7.9-10.8); MONOCYTES % (AUTO) 13.7 %; NEUTROPHILS % (AUTO) 62.8 %; PLT - PLATELET COUNT 153 10^3/uL (130-450); RED BLOOD COUNT 3.94 10^6/uL (4.20-5.40); RED CELL DISTRIBUTION WIDTH 20.6 % (12.0-15.0)
[2023-08-10 20:07] LABS: ABNORMAL LYMPHS % (MANUAL) 0 %
[2023-08-10 21:15] LABS: BAND NEUTROPHILS % (MANUAL) 1 %; BASOPHILS # (MANUAL) 0.1 10^3/uL (0-0.1); BASOPHILS % (MANUAL) 2 %; EOSINOPHILS # (MANUAL) 0.2 10^3/uL (0-0.7); LYMPHOCYTES # (MANUAL) 1.1 10^3/uL (1.5-3.5); LYMPHOCYTES % (MANUAL) 19 %; MONOCYTES # (MANUAL) 0.6 10^3/uL (0.0-1.0); NEUTROPHILS # (MANUAL) 3.9 10^3/uL (1.5-6.6)
[2023-08-10 21:16] LABS: DIFFERENTIAL COMMENT MANUAL DIFFERENTIAL; PLATELET ESTIMATE, MANUAL NORMAL (130-450,000) (NORMAL); PLATELET MORPHOLOGY NORMAL APPEARANCE (NORMAL)
== END 2023-08-10 14:04 | disposition home or self-care (01) ==
LOC: LAB.S 14:03
PROVIDERS: ATTEND Internal Medicine
DX: E78.5 Hyperlipidemia, unspecified (principal); Z13.228 Encounter for screening for other metabolic disorders; Z79.899 Other long term (current) drug therapy; Z13.0 Encounter for screening for diseases of the blood and blood-forming organs and certain disorders involving the immune mechanism
CPT/HCPCS: 36415; 85025

== ENCOUNTER 2023-10-06 10:17 | Outpatient (CLI) | payer MEDICARE, OTHER ==
[2023-10-06 14:41] LABS: BASOPHILS # (AUTO) 0.1 10^3/uL (0.0-0.1); BASOPHILS % (AUTO) 1.5 %; EOSINOPHILS # (AUTO) 0.1 10^3/uL (0.0-0.7); EOSINOPHILS % (AUTO) 2.2 %; HCT - HEMATOCRIT 34.4 % (37.0-47.0); HGB - HEMOGLOBIN 10.6 g/dL (12.0-16.0); LYMPHOCYTES # (AUTO) 1.1 10^3/uL (1.5-3.5); LYMPHOCYTES % (AUTO) 23.1 %; MEAN CORPUSCULAR HEMOGLOBIN 27.2 pg (27.0-31.0); MEAN CORPUSCULAR HGB CONC 30.8 g/dL (32.0-36.0); MEAN CORPUSCULAR VOLUME 88.4 fL (81.0-99.0); MONOCYTES # (AUTO) 0.7 10^3/uL (0.0-1.0); MONOCYTES % (AUTO) 14.5 %; NEUTROPHILS # (AUTO) 2.7 10^3/uL (1.5-6.6); NEUTROPHILS % (AUTO) 58.3 %; PLT - PLATELET COUNT 137 10^3/uL (130-450); RED BLOOD COUNT 3.89 10^6/uL (4.20-5.40); RED CELL DISTRIBUTION WIDTH 20.5 % (12.0-15.0); WHITE BLOOD COUNT 4.6 x10^3/uL (4.8-10.8)
[2023-10-06 14:44] LABS: SLIDE REVIEW? Indicated
[2023-10-06 14:55] LABS: PLATELET MORPHOLOGY NORMAL APPEARANCE (NORMAL)
[2023-10-06 14:56] LABS: PLATELET ESTIMATE, MANUAL NORMAL (130-450,000) (NORMAL)
[2023-10-06 15:48] LABS: FERRITIN 69.7 ng/mL (11.0-306.8)
== END 2023-10-06 10:18 | disposition home or self-care (01) ==
LOC: LAB.S 10:17
PROVIDERS: ATTEND Internal Medicine
DX: Z13.0 Encounter for screening for diseases of the blood and blood-forming organs and certain disorders involving the immune mechanism (principal); Z13.228 Encounter for screening for other metabolic disorders; R06.09 Other forms of dyspnea
CPT/HCPCS: 36415; 82728; 83540; 84466; 85025

== ENCOUNTER 2023-11-03 09:04 | Outpatient (CLI) | payer MEDICARE, OTHER ==
[2023-11-03 14:40] LABS: ALBUMIN 3.9 g/dL (3.2-5.5); BILIRUBIN,TOTAL 0.9 mg/dL (0.2-1.0); CALCIUM 9.5 mg/dL (8.5-10.3); CREATININE 0.9 mg/dL (0.6-1.3); POTASSIUM 4.1 mmol/L (3.5-4.5); TOTAL PROTEIN 5.9 g/dL (6.4-8.9)
[2023-11-03 14:42] LABS: CA 125 18.6 U/mL (0.5-35.0)
== END 2023-11-03 09:05 | disposition home or self-care (01) ==
LOC: LAB.S 09:04
PROVIDERS: ATTEND Internal Medicine
DX: M81.0 Age-related osteoporosis without current pathological fracture (principal); C54.1 Malignant neoplasm of endometrium
CPT/HCPCS: 36415; 80053; 86304

== ENCOUNTER 2023-12-16 07:00 | Outpatient (CLI) | payer MEDICARE, OTHER ==
--- NOTE | 2023-12-18 13:27 | XRAY Report ---
PROCEDURE: Chest 2V INDICATIONS: COUGH/HX LUNG CA TECHNIQUE: 2 views of the chest were acquired. COMPARISON: Chest radiograph on January 06, 2021. FINDINGS: Surgical changes and devices: Interval removal of left-sided port. Lungs and pleura: No pleural effusions or pneumothorax. Lungs are clear. Previously seen right retr ocardiac opacity is not well seen. Mediastinum: Mediastinal contours appear normal. Heart size is normal. Bones and chest wall: No suspicious bony lesions. Overlying soft tissues appear unremarkable. Dege nerative changes of the spine. IMPRESSION: 1.No acute cardiopulmonary process. If there is high clinical suspicion for malignancy, consider cros s-sectional imaging for further evaluation. 2.Previously seen right retrocardiac opacity is not well seen. Reviewed by: Rudi Barney MD on 12/18/2023 1:26 PM PDT Approved by: Rudi Barney MD on 12/18/2023 1:26 PM PDT Station ID: [id number]
== END 2023-12-16 23:59 | disposition home or self-care (01) ==
LOC: DI.S 07:00
PROVIDERS: ATTEND Emergency Medicine
DX: R05.9 Cough, unspecified (principal); Z85.118 Personal history of other malignant neoplasm of bronchus and lung

== ENCOUNTER 2023-12-16 08:00 | Outpatient (CLI) | payer MEDICARE, OTHER | END 2023-12-16 23:59 | disposition home or self-care (01) | LOC: LAB.S 08:00 | PROVIDERS: ATTEND Emergency Medicine | DX: U07.1 COVID-19 (principal) ==